=== PATIENT | female | born 1955 | race Caucasian/White ===

== ENCOUNTER 2018-04-19 21:42 | Emergency (ER) | payer OTHER ==
[~2018-04-19] VITALS: Ht 160 cm; Wt 65.5 kg
[2018-04-19 21:44] VITALS: TEMP 36.3; Ht 160 cm; Wt 65.5 kg
[2018-04-19] MEDS ORDERED: KETOROLAC TROMETHAMINE 60 MG/2 ML VIAL IM STA (22:18)
[2018-04-19] MEDS ORDERED: DEXAMETHASONE **PF** INJ 10 MG/ML VIAL IM ONE (22:30)
[2018-04-19] MEDS ORDERED: DEXAMETHASONE SOD INJ 10 MG/ML VIAL ONE (22:30)
[2018-04-19 22:48] VITALS: BP 164/98; PULSE 82; O2SAT 97
--- NOTE | 2018-04-20 02:46 | EMERGENCY ROOM VISIT NOTE ---
History First contact with patient: 21:58 Chief Complaint: BACK PAIN Stated Complaint: LUMBAR FUSION, CHRONIC PAIN IN LEFT LEG AND BACK History of Present Illness The patient is a 63 year old female who presents to the Emergency Room with complaints of severe back pain radiating down her left leg. The patient states the pain is a 10/10 does not improve with [id number] analgesics. She reports a past medical history of L4, L5, and L6 "disc herniation", "multiple pinched nerves", and "degenerative disc disease". She reports having surgery last year at [facility] in [place] to repair chronic back issues. The patient states that her pain persists despite having surgical intervention. She is primarily here for pain control. She has been utilizing the bathroom as normal. No fevers or chills. No chest pain, chest tightness, or shortness of breath. No new numbness or paresthesias. She does have a report of neuropathy in her left leg, which is also chronic. Review of Systems More than 10 systems were reviewed and otherwise negative with the exception of history of present illness. Past Medical/Surgical History COPD, emphysema, chronic back pain, section, lumbar/sacral spine injections, cholecystectomy, L4 S1 spinal decompression, total hysterectomy Family History Diabetes, heart disease, dyslipidemia, end-stage renal disease Social History Smoking Status: Current Every Day Smoker (45 pack year smoking history) Marital Status: Housing Status: lives alone Occupation Status: disabled Physical Exam Vital Signs Date Time Temp Pulse Resp B/P (MAP) Pulse Ox O2 Delivery O2 Flow Rate FiO2 04/19/18 22:48 82 18 164/98 97 04/19/18 21:44 36.3 86 18 145/83 97 Room Air Physical Exam VITALS: Vitals are noted on the nurse's note and reviewed by myself. Vital signs stable. GENERAL: Chronically ill appearing female in no acute distress. HEAD: Normocephalic atraumatic. NECK: Supple without nuchal rigidity. No lymphadenopathy. No thyromegaly. Cervical spine is nontender. HEART: Regular rate and rhythm without murmurs gallops or rubs. LUNGS: Clear to auscultation bilaterally without wheezes, rales or rhonchi. No retractions or accessory muscle use. ABDOMEN: Positive normal bowel sounds x 4. Soft, nontender, without masses or organomegaly. No guarding or rebound tenderness. BACK: Well-healed surgical scar is noted without spinal tenderness or evidence of infection. Positive left-sided straight leg raise. No saddle paresthesias MUSCULOSKELETAL: No muscle atrophy, erythema, or edema noted. Medical Decision & Procedures Medications Administered Medications (Trade) Dose Ordered Sig/Rosa Route Start Time Stop Time Status Last Admin Dose Admin Ketorolac Tromethamine (Toradol Inj) 60 mg NOW STAT IM 04/19/18 22:18 04/19/18 22:23 DC 04/19/18 22:36 60 MG Dexamethasone Sodium Phosphate (Decadron Inj) 10 mg STK-MED ONCE .ROUTE 04/19/18 22:30 04/19/18 22:31 DC 04/19/18 22:37 10 MG ED Course Physical exam and history were performed. Nursing notes, EMR, and Medication List were personally reviewed. Patient appears to have chronic back pain bringing her to the emergency department today. She evidently has a past history of back surgery, and is rating her pain a 10/10. On examination she does not have obvious neurologic deficit. No reproducible tenderness is appreciated. I was able to review the patient's profile in the [place] drug monitoring site. The patient has had multiple controlled substance prescriptions over the past year, including 27 different prescriptions from 12 separate providers in 8 different cities. The patient follows with the [facility] group, and I was able to review her medical records through [employer]. In review of the [facility] medical record I was able to determine the patient has been frequenting the [place] emergency department for her chronic pain. The patient was seen at their facility 2 days ago and 6 days ago with these complaints. The patient has been to their facility a total of 14 times in the past 5 months for similar complaints. She does have a recent MRI that was performed on 02/18/2018 of her low back. The MRI showed uncomplicated spinal fusion hardware with a mild central disc bulge with bilateral neural foraminal narrowing at L4-L5. She had a PCP follow up on 04/15/2018 (4 days ago) who are trying to avoid narcotics and started her on an increased dose of gabapenin. She has appointments upcoming on 05/02/2018 with pain management. There are several additional notes over the past few weeks from case management and other social service providers. The patient appears to have a strong history of drug-seeking behavior and would like to have a pain pump, however she has been unable to complete a full psychiatric evaluation. She does follow with psychiatry, however they will not provide her benzodiazepines until she is off of opioid therapy. [facility] was able to arrange for the patient to have outpatient physical therapy at [facility], and she was placed there earlier this morning. The patient subsequently signed out AGAINST MEDICAL ADVICE from that facility as she felt they were not treating her pain appropriately, and came directly to this facility for pain control. We did receive a phone call from [facility] prior to the patient's arrival, and they voiced their concern for drug-seeking behavior as well. I had a lengthy discussion with patient regarding her situation. I explained that the emergency department was not able to treat chronic pain, but we will provide her a 60 mg IM dose of Toradol as well as a 10 mg IM dose of Decadron. I do not feel comfortable providing the patient narcotics for her pain, as she is frequenting multiple emergency departments and providers for pain control. The patient was very dissatisfied with the nonnarcotic options, and attempted to bargain for narcotics. I again explained that we would treat her pain here with Toradol and Decadron, and additional medications should come from her primary care physician or painter and body mechanic apprentice. Overall the patient appears well for discharge home. The patient was discharged home under the care of a shelter supervisor who is driving for her today. Of note the patient refused a wheelchair at the time of discharge, and also refused a walker. She attempted to walk out of the ER herself, and ultimately required assistance from nursing to leave. There is concern the patient was going to lay herself on the ground and claim that she fell. The patient was escorted with nursing to the [facility], where she was placed into her vehicle without difficulty. She indicated that she was going to go to "[place] to get pain meds". I have a strong suspicion for drug-seeking behavior, and will recommend that she be placed on a no narcotic treatment plan. The chart was completed utilizing [employer] Voice [employer]ognition Software. Grammatical errors, random word insertions, pronoun errors, and incomplete sentences are an occasional consequence of this system due to software limitations, ambient noise, and hardware issues. Any formal questions or concerns about the content, text, or information contained within the body of this dictation should be directly addressed to the provider for clarification. . Medical Decision Differential diagnosis: Etiologies such as musculoskeletal, disc herniation, fracture, aortic disease, metastatic disease, cord compression, discitis, infection, renal colic, gastrointestinal, acute exacerbation of chronic back pain, sciatica, cauda equina, as well as others were entertained. [place] Drug Monitoring Program Search Results: patient reviewed within database (27 prescriptions from 12 providers in 8 different Cities) Impression Primary Impression: Chronic back pain Additional Impression: Drug-seeking behavior Departure Information Dispostion Home / Self-Care Condition GOOD Forms HOME CARE DOCUMENTATION FORM, IMPORTANT VISIT INFORMATION Patient Instructions My [facility] Additional Instructions You were seen and evaluated today on an emergency basis only. This is not a substitute for, or an effort to provide, complete comprehensive medical care. It is not possible to recognize and treat all injuries or illnesses in a single emergency department visit. For this reason it is recommended that you followup with your primary care physician, surgeon, or painter and body mechanic apprentice for ongoing care and evaluation. Emergency department does not provide services for chronic pain control Continue your at-home medications as prescribed You are welcome to return to the emergency department anytime with new, worsening, or concerning symptoms. Problem Qualifiers
== END 2018-04-19 22:49 | disposition home or self-care (01) ==
LOC: C.EDB 21:43
DX: M54.9 Dorsalgia, unspecified (principal); M79.605 Pain in left leg; Z76.5 Malingerer [conscious simulation]; Z98.1 Arthrodesis status; J44.9 Chronic obstructive pulmonary disease, unspecified; F17.210 Nicotine dependence, cigarettes, uncomplicated; Z83.3 Family history of diabetes mellitus; Z84.1 Family history of disorders of kidney and ureter; Z82.49 Family history of ischemic heart disease and other diseases of the circulatory system

== ENCOUNTER 2018-12-12 09:08 | Inpatient (IN) ==
--- NOTE | 2018-10-21 16:18 | PAT Medication Instructions ---
Medication Instructions Date of Service October 21, 2018 Home Medications Aspir-81 81 mg PO QAM albuterol sulfate [ProAir HFA] 2 puff INHALATION QID PRN atorvastatin 20 mg PO HS budesonide [Pulmicort Flexhaler] 1 inh INHALATION BID clonazepam [Klonopin] 1 mg PO UD PRN cyclobenzaprine 10 mg PO TID PRN doxepin 50 mg PO HS gabapentin 300 mg PO TID PRN gabapentin 800 mg PO TID meloxicam 15 mg PO QAM metformin 500 mg PO BID topiramate [Topamax] 25 mg PO QAM topiramate [Topamax] 50 mg PO HS umeclidinium [Incruse Ellipta] 1 inh INHALATION BID ASK your surgeon for instructions meloxicam 15 mg PO QAM DO NOT take the morning of surgery cyclobenzaprine 10 mg PO TID PRN metformin 500 mg PO BID Take morning of surgery With a small sip of water, OTHERWISE NOTHING TO EAT OR DRINK AFTER MIDNIGHT: Aspir-81 81 mg PO QAM albuterol sulfate [ProAir HFA] 2 puff INHALATION QID PRN (use if needed; please bring with you to hospital day of surgery if possible) budesonide [Pulmicort Flexhaler] 1 inh INHALATION BID clonazepam [Klonopin] 1 mg PO UD PRN (if needed) gabapentin 300 mg PO TID PRN (if needed) gabapentin 800 mg PO TID topiramate [Topamax] 25 mg PO QAM umeclidinium [Incruse Ellipta] 1 inh INHALATION BID Take evening before surgery albuterol sulfate [ProAir HFA] 2 puff INHALATION QID PRN (if needed) atorvastatin 20 mg PO HS budesonide [Pulmicort Flexhaler] 1 inh INHALATION BID clonazepam [Klonopin] 1 mg PO UD PRN (if needed) cyclobenzaprine 10 mg PO TID PRN (if needed) doxepin 50 mg PO HS gabapentin 300 mg PO TID PRN (if needed) gabapentin 800 mg PO TID metformin 500 mg PO BID topiramate [Topamax] 50 mg PO HS umeclidinium [Incruse Ellipta] 1 inh INHALATION BID Other Notes If you have any questions please call us at [phone] or [phone] or [phone] or [phone]
--- NOTE | 2018-11-07 16:54 | Anesthesiology Consultation ---
Date of Service November 07, 2018 Assessment & Plan (1) Encounter for pre-operative examination: PATIENT WAS CANCELLED BY SURGEON FOR ELEVATED HgBA1C. Chart Review Chart Review: Patient seen in Pre Admission Testing Consults Requested medical (Dr. Doe) Teaching & Discussion Pre-Anesthesia Teaching/Discussion Notes: Instructed NPO after midnight before surgery, except medications with 15 cc of water. Medication instructions provided according to the PAT guidelines. History Surgery Operation Date: 11/29/18 07:15 Proposed Procedures p Left Total Hip Arthroplasty - Jl Brennan DO Height/Weight Height: 5 ft 3 in Weight: 71 kg Allergies Allergy/AdvReac Type Severity Reaction Status Date / Time No Known Allergies Allergy Verified 10/19/18 09:37 Medications Home Medications Medication Instructions Recorded Confirmed Last Taken Aspir-81 81 mg PO QAM 10/19/18 10/19/18 Unknown albuterol sulfate [ProAir HFA] 2 puff INHALATION QID PRN 10/19/18 10/19/18 Unknown atorvastatin 20 mg PO HS 10/19/18 10/19/18 Unknown budesonide [Pulmicort Flexhaler] 1 inh INHALATION BID 10/19/18 10/19/18 Unknown clonazepam [Klonopin] 1 mg PO UD PRN 10/19/18 10/19/18 Unknown cyclobenzaprine 10 mg PO TID PRN 10/19/18 10/19/18 Unknown doxepin 50 mg PO HS 10/19/18 10/19/18 Unknown gabapentin 300 mg PO TID PRN 10/19/18 10/19/18 Unknown gabapentin 800 mg PO TID 10/19/18 10/19/18 Unknown meloxicam 15 mg PO QAM 10/19/18 10/19/18 Unknown metformin 500 mg PO BID 10/19/18 10/19/18 Unknown topiramate [Topamax] 25 mg PO QAM 10/19/18 10/19/18 Unknown topiramate [Topamax] 50 mg PO HS 10/19/18 10/19/18 Unknown umeclidinium [Incruse Ellipta] 1 inh INHALATION BID 10/19/18 10/19/18 Unknown Past Medical History Medical History Anxiety Chronic obstructive pulmonary disease History of prediabetes "PREDIABETES"- ON METFORMIN Hx of avascular necrosis of capital femoral epiphysis RECENT DIAGNOSIS Hyperlipidemia Migraine Osteoarthritis Past Surgical History Surgical History History of appendectomy History of cataract extraction with lens replacement BILATERAL History of section X2 History of cholecystectomy History of colonoscopy History of hysterectomy TOTAL History of lumbar fusion Past Anesthesia History No Hx of Anesthesia Complications and No Family Hx of Anesthesia Complications History of PONV No Motion Sickness Screening History of Motion Sickness: No Social History Smoking Status: Current every day smoker tobacco type: cigarettes Smoking cigarettes per day: HX OF 1/2 PPD X 20+ YEARS Do You Dip or Chew Tobacco: No Hx Alcohol Use: No Alcohol Intake Frequency Comment: 0 Hx Substance Use: No substance use type: does not use Exercise / Class Metabolic Activity II 4-5 Yardwork/Stairs/Walk up hill (Limited by pain, but still tries to do housework. Able to climb stairs slowly (twice daily). Denies CP. Does get SOB with stairs due to COPD.) Review of Systems Patient denies chest pain, joint pain, reflux, cough, palpitations. +SOB/CARDOZA/Wheezing (Due to COPD) +Joint pain (hip) Physical Exam Vital Signs BP: 124/84 P: 92 R: 16 T: 97.6 SPO2: 96% on RA ENMT Mouth: + poor dentition and + chipped teeth Thyromental Distance: < 3.5 Finger Breadths (2.5) Mallampati Class: III Neck normal visual inspection and trachea midline; neck extension not limited Respiratory normal respiratory effort Auscultation: lungs clear to auscultation bilaterally Cardiovascular Rate/Rhythm: regular rate and regular rhythm Heart Sounds: no murmur Vessels: no carotid bruit Neurologic moves all extremities Psychiatric Orientation: alert and oriented x 3 Testing Electrocardiogram Date: 11/07/18 Findings: + NSR @ (100) Chest X-Ray Date: 11/07/18 Findings: + NAD FINDINGS: Cardiomediastinal silhouette normal. Lungs are mildly hyperinflated. No focal lung opacity. Heterogeneity of lung parenchyma. No pleural effusion or pneumo thorax. Osseous structures normal. Cholecystectomy clips noted. IMPRESSION: 1. Findings may suggest underlying emphysema. No convincing evidence of acute cardiopulmonary disease. Laboratory Results 11/07/18 17:13 11/07/18 17:13 Blood Type AB Positive 11/07/18 17:16 Antibody Screen NEGATIVE 11/07/18 17:16 PT 9.4 Seconds (9.0-12.0) 11/07/18 17:13 INR 0.9 (0.9-1.1) 11/07/18 17:13 APTT 26.2 Seconds (21.0-31.0) 11/07/18 17:13 Hemoglobin A1c 7.6 % (4.5-5.6) H 11/07/18 17:13 Urine Color Yellow 11/07/18 17:13 Urine Appearance Clear (Clear) 11/07/18 17:13 Urine pH 6.0 (4.5-7.5) 11/07/18 17:13 Ur Specific [place] 1.014 (1.000-1.030) 11/07/18 17:13 Urine Protein Negative (Negative) 11/07/18 17:13 Urine Glucose (UA) Negative (Negative) 11/07/18 17:13 Urine Ketones Negative (Negative) 11/07/18 17:13 Urine Nitrite Negative (Negative) 11/07/18 17:13 Ur Leukocyte Esterase Negative (Negative) 11/07/18 17:13 11/07/18 17:13 Urine Culture - Final Urine,Clean Catch Lactobacillus species Surgeon's office notified of elevated HgbA1C.
[2018-11-07 18:23] LABS: Appearance Urine Clear (Clear); Bilirubin Urine Negative (Negative); Blood Urine Negative (Negative); Color Urine Yellow; Glucose Urine UA Negative (Negative); Ketones Urine Negative (Negative); Leukocyte Esterase Urine Negative (Negative); Nitrite Urine Negative (Negative); Protein Urine Negative (Negative); Specific Gravity Urine 1.014 (1.000-1.030); Urobilinogen Urine Negative (Negative)
--- NOTE | 2018-11-07 18:24 | XRay Report ---
XR chest 2V routine CLINICAL HISTORY: 63 years-old Female presenting with PRE OP. TECHNIQUE: PA and lateral views of the chest were obtained. COMPARISON: None. FINDINGS: Cardiomediastinal silhouette normal. Lungs are mildly hyperinflated. No focal lung opacity. Heterogen eity of lung parenchyma. No pleural effusion or pneumothorax. Osseous structures normal. Cholecystect katarina clips noted. IMPRESSION: 1. Findings may suggest underlying emphysema. No convincing evidence of acute cardiopulmonary diseas e. Electronically signed by: Zane Alvarado M.D. 11/07/2018 6:23 PM
[2018-11-07 18:25] LABS: Basophils # (auto) 0.07 K/uL (0-0.2); Basophils % (auto) 0.9 %; Eosinophils # (auto) 0.21 K/uL (0-0.5); Eosinophils % (auto) 2.7 %; Hematocrit (blood only) 39.5 % (37-47); Hemoglobin 13.4 g/dL (12.0-16.0); Immature Granulocytes # (auto) 0.02 K/uL (0.00-0.02); Immature Granulocytes % (auto) 0.3 %; Lymphocytes # (auto) 3.24 K/uL (1.2-3.4); Lymphocytes % (auto) 41.9 %; Mean Corpuscular Hgb Conc 33.9 g/dL (32-36); Mean Corpuscular Volume 96.8 fL (80-100); Mean Platelet Volume 10.5 fL (7.4-10.4); Monocytes # (auto) 0.86 K/uL (0.11-0.59); Monocytes % (auto) 11.1 %; Neutrophils # (auto) 3.33 K/uL (1.4-6.5); Neutrophils % (auto) 43.1 %; Platelet Count 398 K/uL (130-400); RDW Coefficient of Variation 13.5 % (11.5-14.5); RDW Standard Deviation 48.4 fL (36.4-46.3); Red Blood Count 4.08 M/uL (4.2-5.4); White Blood Count 7.73 K/uL (4.8-10.8)
[2018-11-07 18:45] LABS: Albumin Level 3.4 gm/dl (3.4-5.0); BUN Creatinine Ratio 19.3 (10-20); Calcium 9.1 mg/dl (8.5-10.1); Creatinine Clr Calc Pharmacy 71.6 ml/min; Est GFR (African American) 95.9; Est GFR (Non-African American) 82.8; Potassium 3.8 mmol/L (3.5-5.1)
[2018-11-07 18:56] LABS: INR 0.9 (0.9-1.1); Partial Thromboplastin Time 26.2 Seconds (21.0-31.0); Prothrombin Time 9.4 Seconds (9.0-12.0)
[2018-11-08 05:53] LABS: Estimated Average Glucose 171 mg/dl; Hemoglobin A1C 7.6 % (4.5-5.6)
--- NOTE | 2018-12-11 10:24 | History & Physical Report ---
Date of Service December 11, 2018 Assessment & Plan (1) Degenerative joint disease (DJD) of hip: I have indicated the patient for left total hip replacement. The risks, benefits and complications of surgery were explained to the patient which include but not limited to infection, acute blood loss, DVT/PE, injury to nerves, vessels, bone, soft tissue, arthrofibrosis, chronic pain, failure of the prosthesis, hip dislocation, leg length discrepancy, need for additional surgery, cardiac and pulmonary events and . The patient wished to proceed with surgery and informed consent was obtained at this time. We will plan for ASA 325mg BID post-operatively for DVT prophylaxis. Upon discharge the patient will be discharged home with home health services. Appropriate clearances by PCP were obtained. History of Present Illness Primary Care Provider: Dr. Doe The patient is a 63 year old female who presents with complaints of severe left hip pain and DJD. The patient has failed outpatient conservative treatments to this point which included NSAIDs, IA corticosteroid injections and a home walking, exercise program. The patient's pain and limited function have progressed to the point where they severely hinder their activities of daily living and they no longer tolerate exercise programs. They are requesting to proceed with total hip replacement surgery. Allergies Allergy/AdvReac Type Severity Reaction Status Date / Time pollen extracts Allergy Sneezing Verified 12/12/18 09:39 Home Medications Home Medications Medication Instructions Recorded Confirmed Type albuterol sulfate [ProAir HFA] 2 puff INHALATION QID PRN 10/19/18 12/12/18 His tory atorvastatin 20 mg PO HS 10/19/18 12/12/18 History budesonide [Pulmicort Flexhaler] 1 inh INHALATION BID 10/19/18 12/12/18 History clonazepam [Klonopin] 1 mg PO UD PRN 10/19/18 12/12/18 History cyclobenzaprine 10 mg PO TID PRN 10/19/18 12/12/18 History doxepin 50 mg PO HS 10/19/18 12/12/18 History gabapentin 300 mg PO TID PRN 10/19/18 12/12/18 History gabapentin 800 mg PO TID 10/19/18 12/12/18 History meloxicam 15 mg PO QAM 10/19/18 12/12/18 History metformin 500 mg PO BID 10/19/18 12/12/18 History topiramate [Topamax] 25 mg PO QAM 10/19/18 12/12/18 History topiramate [Topamax] 50 mg PO HS 10/19/18 12/12/18 History umeclidinium [Incruse Ellipta] 1 inh INHALATION BID 10/19/18 12/12/18 History aspirin [Aspirin Low Dose] 81 mg PO DAILY 12/12/18 12/12/18 History Past Med/Surg History Medical History Anxiety Chronic obstructive pulmonary disease History of prediabetes "PREDIABETES"- ON METFORMIN Hx of avascular necrosis of capital femoral epiphysis RECENT DIAGNOSIS Hyperlipidemia Migraine Osteoarthritis Surgical History History of appendectomy History of cataract extraction with lens replacement BILATERAL History of section X2 History of cholecystectomy History of colonoscopy History of hysterectomy TOTAL History of lumbar fusion Social History Preferred Language: German Communication Ability: Effective Software Engineering Analyst Required: No Beliefs That Will Affect Care: None Current Living Situation: Family Other Information That Helps Us Care for You: No Feels Safe at Home: Yes Safety Concerns: Feels Safe At This Time Smoking Status: Current every day smoker Hx Alcohol Use: No Hx Substance Use: No Review of Systems All systems reviewed & are unremarkable except as noted in HPI & below Physical Exam Physical Exam: LLE NVSI +EHL/FHL/TA/GS SILT grossly, +2 DP pulse, compartments soft NT, limited painful ROM of the hip. Antalgic gait. Constitutional: WD/WN, vitals as above Eyes: PERRL, conjunctivae normal, anicteric sclerae ENMT: external ear and nose normal, oropharynx normal Neck: trachea midline, no thyromegaly Respiratory: normal respiratory effort, lungs clear to auscultation Cardiovascular: RRR, no murmur, no edema Gastrointestinal (Abdomen): normal bowel sounds, soft, nontender, no hepatosplenomegaly Musculoskeletal: no cyanosis or clubbing, extremities motor strength 5/5 Skin: no rashes, warm and dry Neurologic: patellar DTR's 2+ bilat, sensation intact Psychiatric: A+Ox3, euthymic affect Lymphatic: no cervical or axillary lymphadenopathy Results & Data Diagnostic Findings Multiple views of the hip demonstrates severe DJD with complete loss of the joint space. +osteophytes, +sclerosis, +subchondral cysts. Femoral head sunchondral collapse/AVN.
[~2018-12-12 09:08] MED LIST: ACETAMINOPHEN 500 MG TAB PO SCH; BUPIVACAINE 0.5 % 5 MG/1 ML PF 10ML VIAL ONE; CEFAZOLIN 1000MG 1,000 MG/7.5 ML SYR IV SCH; CeleBREX 200 MG CAP PO SCH; FAMOTIDINE 20 MG TAB PO SCH; GABAPENTIN 300 MG x 2 PO SCH; LR 500ML BOLUS, THEN 15ML/HR IV SCH; ROPIVACAINE 0.5% HCL/PF 150 MG, BUPIVACAINE 0.5% MPF 30 ML, EPINEPHrine 30MG/30ML (OR U... INFIL SCH; TRANEXAMIC ACID 1,000 MG **IV Intra-op IV SCH; TRANEXAMIC ACID 1,000 MG **IV Pre-op IV SCH; dexAMETHasone 4 MG TAB PO SCH
[2018-12-12] MEDS ORDERED: MIDAZOLAM HCL 1 MG/ML 2ML VIAL ONE ×2 (09:27→14:11)
[2018-12-12] MEDS ORDERED: LIDOCAINE HCL 2% 2 ML VIAL/AMP(20MG/ML) INFIL ONE (09:27)
[2018-12-12] MEDS ORDERED: PROPOFOL IV EMULSION 10 MG/ML 20 ML VIAL IV ONE (09:27)
[2018-12-12] MEDS ORDERED: fentaNYL citrate 100 MCG/2 ML VIAL ONE (09:27)
[2018-12-12] MEDS ORDERED: ORTHO JOINT ANESTHETIC ONE (10:19)
[2018-12-12] MEDS ORDERED: BACITRACIN INJ 50,000 UNIT VIAL ONE (10:19)
[2018-12-12] MEDS ORDERED: POVIDONE-IODINE OP SOLN 30 ML BTL ONE (10:19)
[2018-12-12] MEDS ORDERED: ePHEDrine sulfate 50 MG/ML AMP IV PRN (10:42)
[2018-12-12] MEDS ORDERED: ATROPINE SULFATE 0.1 MG/ML 10ML SYR IV PRN (10:42)
[2018-12-12] MEDS ORDERED: HYDROmorphone INJ 2 MG/ML SYR/VIAL ONE (11:30)
[2018-12-12] MEDS ORDERED: ROCURONIUM BROMIDE 10 MG/ML 5 ML VIAL ONE (11:30)
[2018-12-12] MEDS ORDERED: KETAMINE HCL INJ 50 MG/ML 10 ML VIAL ONE (12:00)
[2018-12-12] MEDS: HYDROmorphone INJ 1 MG/ML SYRINGE IV PRN ×8 (13:02→14:56)
--- NOTE | 2018-12-12 13:12 | Post Operative Brief Note ---
Immediate Post Op Note v1 Date of Surgery December 12, 2018 Pre & Post Diagnosis Operation Date: 12/12/18 11:30 Pre-Op Diagnosis: Left hip degenerative joint disease Post-Op Diagnosis: Left hip degenerative joint disease Procedure Operation Date: 12/12/18 11:30 Actual Procedures p Left Total Hip Arthroplasty(Left) - Jl Brennan DO Surgeon lJ Brennan DO Loose Hand Packer Deshaun Velazquez Estimated Blood Loss 55 Findings Consistent with Post-Op Diagnosis Fluids 1100 CC LR Specimens femoral head Anesthesia Type General Complications none Disposition Disposition: Recovery Room Overlapping Procedure I was present for: the critical portions of procedure. I was immediately available: during the entire case. Back up surgeon: was not required during procedure.
--- NOTE | 2018-12-12 13:20 | Operative Report ---
Post Operative Report Pre & Post Diagnosis Operation Date: 12/12/18 11:30 Pre-Op Diagnosis: Left hip degenerative joint disease Post-Op Diagnosis: Left hip degenerative joint disease Procedure Operation Date: 12/12/18 11:30 Actual Procedures p Left Total Hip Arthroplasty(Left) - Jl Brennan DO Surgeon Jl Brennan DO Tire Inspector Deshaun Velazquez Estimated Blood Loss 55 Findings Consistent with Post-Op Diagnosis Specimens Femoral head Anesthesia Type General Complications none Disposition Disposition: Recovery Room Indications The patient is a 63-year-old female who presents with severe progressive left hip DJD/AVN who has failed outpatient conservative treatments. I indicated the patient for a total hip replacement and the risks and benefits were explained in detail which included but not limited to infection, bleeding, blood clot, damage to surrounding bone, nerves, vessels, soft tissue, hip dislocation, failure of the prosthesis, leg length discrepancy, need for additional surgery and . The patient agreed to proceed with replacement of the hip and informed consent was obtained. Appropriate clearances were obtained. Description of Procedure Following induction of adequate general anesthesia, the patient was transferred to the OR table and placed in lateral decubitus position with right hip down. The left hip was prepped and draped in the typical sterile fashion. A timeout was performed, patient identified and site ashu confirmed. Appropriate antibiotics were given. A standard posterolateral/Kala-Langenbeck incision was made. Subcutaneous tissue was sharply dissected. Electrocautery was utilized for hemostasis. The fascia was incised throughout the length of the wound and retracted with the Charnley retractor. The bursa was taken down and the short external rotators were identified. The piriformis was tagged with #1 Vicryl. The short external rotators and capsule were divided from the posterior aspect of the femur using electrocautery. The posterior capsule was tagged with #1 Vicryl. Both external rotators and posterior capsule were swept posterior and protected, along with protecting the sciatic nerve. The hip was dislocated by flexion and internally rotation in a controlled manner and exposure of the femoral neck was gained with an old-style Hohmann and a blunt cobra retractor. A femoral cutting guide was utilized for making the appropriate level femoral neck cut with reciprocating saw. The femoral head was removed, measured and reserved on the back table. Next, attention was turned to the acetabulum. A posterior and anterior offset retractor was placed to gain adequate exposure. Acetabular labrum as well as posterior capsule elements were removed using electrocautery and forceps. Fovea centralis was cleared of all soft tissue. Sequential reaming was performed starting at 42 mm and carried up to a 47 mm and decision was made to proceed with impaction of a 48 mm trabecular metal cup. This was impacted and held using a single 35 mm bone screw. The trial acetabular liner was placed at this time. Next, attention was turned to the proximal femur where a Bovie and pickup was used to further clear short exte rnal rotators from their insertion on the femur. Box osteotome and canal finder was used to gain access to the femoral canal and the lateral reamer on power was used to further open the proximal lateral canal. Sequentially rasping was carried up to a 10 which gave good fit and fill of the proximal femur. A trial reduction was carried out with a standard offset femoral neck component a 32+0 mm femoral head. The trial reduction was stable in all degrees of rotation with no [id number] impingement. The hip was dislocated, trial components were removed and access to the acetabulum was re-established. The trial liner was removed and the cup was irrigated to ensure all debris was removed. The final acetabular liner was inserted and properly seated in the cup. Access to the femur was once more gained and the size 10 femoral stem with standard offset was impacted into position. The hip was once more assessed with the 32+0 mm femoral head. Stability was accessed and found to be excellent with equal leg lengths. The hip was dislocated for the last time and the final 32+0 ceramic femoral head was impacted in place and the hip was reduced. Range of motion was checked once again and found to be stable. The wound was copiously irrigated with sterile saline solution. The ban-incisional soft tissue was injected utilizing [place] ortho mix which includes a combination of Ropivicaine 0.5% 150mg, Bupivicaine 0.5%/Epinephrine 1:200,000 30ml, Toradol 30mg, Dexamethasone 4mg, Ketamine 10mg, Clonidine 100mcg and NSS 30ml Orthomix solution. The piriformis, external rotators and capsule were repaired to the greater trochanter through bone tunnels using #5 FiberWire. The fascia was closed using #1 Vicryl, subcutaneous tissue was closed using 2-0 Vicryl, and skin was closed with fatoumata. Sterile dressings were applied which included Tamara incisional VAC. The patient tolerated the procedure well and was transported to PACU in stable condition. Due to the complex nature of the procedure, the entire surgery was performed with the operational assistance of Deshaun Velazquez PA-C. The assistant customer service manager, under direct supervision, was involved in the actual performance of all aspects of the surgical procedure including patient positioning, hemostasis, tissue retraction, instrument management and wound closure. I attest to the content of the Intraoperative Record and any orders documented therein. Any exceptions are noted below.
--- NOTE | 2018-12-12 14:00 | Anesthesiology Progress Note ---
Date of Service December 12, 2018 Anesthesia Post Procedure Vital Signs Vital Signs: Temp Pulse Resp BP Pulse Ox 12/12/18 10:02 36.5 C 98 H 20 143/87 H 97 Pain Intensity Left Hip: Pain Intensity: 8 Notes Mental Status: alert / awake / arousable Patient Amnestic to Procedure: Yes Nausea / Vomiting: adequately controlled Pain: adequately controlled Airway Patency, RR, SpO2: stable & adequate BP & HR: stable & adequate Hydration State: stable & adequate Anesthetic Complications: no major complications apparent and Pt Satisfied with anesthetic care
[2018-12-12] MEDS ORDERED: MIDAZOLAM HCL 5 MG/ML 1 ML VIAL IV STA (14:05)
--- NOTE | 2018-12-12 14:10 | XRay Report ---
XR hip 1V LT w pelvis CLINICAL HISTORY: 63 years-old Female presenting with IN PACU - A/P PELVIS and LATERAL HIP . TECHNIQUE: Single frontal view the pelvis and crosstable lateral view of the left hip were obtained. COMPARISON: None. FINDINGS: Partially visualized lumbar fusion hardware. Post-surgical changes of total left hip arthroplasty. No periprosthetic fracture or malalignment. Bony pelvis otherwise intact. Expected soft tissue and intr a-articular emphysema. Skin fatoumata noted. Osteopenia. IMPRESSION: Expected post-surgical changes of total left hip arthroplasty. Electronically signed by: Zane Alvarado M.D. 12/12/2018 2:09 PM
[2018-12-12] MEDS: HYDROmorphone INJ 2 MG/ML SYR/VIAL IV PRN ×3 (14:45→14:56)
[2018-12-12] MEDS ORDERED: BISACODYL 10 MG SUPP PR PRN (15:32)
[2018-12-12] MEDS ORDERED: METOCLOPRAMIDE HCL INJ 5 MG/ML 2 ML VIAL IV PRN (15:32)
[2018-12-12] MEDS ORDERED: GABAPENTIN 300 MG CAP PO PRN (15:32)
[2018-12-12] MEDS ORDERED: NALOXONE HCL 0.4 MG/1 ML VIAL/CARP IV PRN (15:32)
[2018-12-12] MEDS ORDERED: ONDANSETRON INJ 2 MG/ML 2 ML VIAL IV PRN (15:32)
[2018-12-12] MEDS ORDERED: MAGNESIUM HYDROXIDE SUSP 30 ML UDC PO PRN (15:32)
[2018-12-12] MEDS ORDERED: ALBUTEROL HFA 8 GM INHALER INH PRN (15:32)
--- NOTE | 2018-12-12 15:52 | Pharmacy Report ---
Glycemic Control Consultation - Date of Service December 12, 2018 - Scope Scope: Glycemic Pharmacist consulted by Dr Brennan on 12/12/18 for glycemic control and to write orders per [facility] inpatient glycemic control protocol - Objective Weight: 67.449 kg Accuchecks BSG (last 24hrs): 12/12/18 12/12/18 09:38 13:47 POC Glucose 123 H 156 H HbA1c: Hemoglobin A1c 7.6 % (4.5-5.6) H 11/07/18 17:13 - Recent Pertinent Medications Outpatient Anti-diabetic Regimen: * metformin 500 mg PO BID * A1c = 7.6 % 11/07/18 Risk Factors for Insulin Resistance: * Steroids: dexamethasone 8 mg PO preop and dexamethasone 4 mg topically * Recent Surgery: POD 0 for hip surgery * Diet: T2DM - Assessment & Plan Assessment & Plan: ASSESSMENT: * Ms Lowry is a 63 y/o F with a PMH of anxiety, migraines, and slightly uncontrolled T2DM who presents for L hip surgery. Patient is now post-op having received steroids. Fasting today was 123 mg/dL and after was 156 mg/dL. * For Lantus, will give between full weight-based stress of 2 and 3 at 20 units. Do not want to jayne hyperglycemia from steroids with Lantus therefore will add overnight checks. Weight-based stress of 3 Novolog also ordered. Consider restarting metformin POD2. * ADA & AACE recommend a goal blood sugar range 140-180 mg/dl for the majority of critically ill & non-critically ill patients. However, more stringent targets may be selected in individual cases. Will utilize more stringent goal of 110-140mg/dl based on patient age & comorbidities. Additionally, tighter glycemic control is warranted to facilitate wound/infection healing. * Pt is maintained on oral antidiabetic agents as an outpatient * Oral agents are not recommended for inpatient use d/t drug interactions, changing PO intake, and difficulty titrating for acute hyper/hypoglycemia. ADA recommends re-initiating outpatient oral agents 1-2 days prior to discharge if/when appropriate if they were held on admission. * Will hold oral agents for admission and utilize SQ basal bolus insulin regimen which is the recommended regimen for inpatient glycemic control. * Will initiate weight based insulin dosing for insulin zak patient and titrate based on BSG trends. PLAN FOR INPATIENT GLYCEMIC CONTROL: * Holding outpatient oral diabetes medications * Basal insulin * Lantus 20 units SQ x 1 * Bolus insulin * NovoLog per scale ACHS or Q6hrs while NPO * Goal Range: Low 110 mg/dL - High 140 mg/dL * Correction Factor: 25 mg/dL/unit * Nutritional / Prandial insulin per carb ratio of 1 unit per 8 grams CHO consumed Recommendations for Discharge * Patient is not 100% controlled currently. Recommend increasing metformin to 1 gm PO BID and then rechecking A1C in 3 months. Thank you.
[2018-12-12] MEDS ORDERED: PHARMACY GLYCEMIC MGMT CONSULT PRN (15:56)
[2018-12-12] MEDS ORDERED: GLUCOSE 40% GEL 15 GM TUBE PO PRN (16:00)
[2018-12-12] MEDS ORDERED: DEXTROSE 50% 50 ML SYRINGE IV PRN (16:00)
[2018-12-12] MEDS ORDERED: CARBOHYDRATES FOR HYPOGLYCEMIA PO PRN (16:00)
[2018-12-12] MEDS ORDERED: GLUCAGON FOR INJ 1 MG VIAL IM PRN (16:00)
[2018-12-12] MEDS ORDERED: GLUCOSE 10 TABS/TUBE PO PRN (16:00)
[2018-12-12] MEDS ORDERED: SODIUM CHLORIDE 0.9% 1000ML 1,000 ML IV SCH (16:02)
[2018-12-12] MEDS: KETOROLAC TROMETHAMINE 15 MG/ML VIAL IV SCH ×2 (16:25→21:23)
[2018-12-12] MEDS ORDERED: INSULIN GLARGINE SOLOSTAR 100 UNITS/ML 3 ML PEN SC ONE (16:30)
--- NOTE | 2018-12-12 17:00 | Orthopedic Progress Note ---
Date of Service December 12, 2018 Assessment & Plan (1) Degenerative joint disease (DJD) of hip: s/p Left NANDINI -ancef x 24 -DVT ppx - SCDs, TEDS, ASA BID -WBAT LLE -PT/OT -PO XR - well aligned well fixed prothesis without fracture/dislocation -am labs -DC planning - Home with HH Subjective Post Operative Progress Note Patient seen in PACU, c/o pain, no acute issues. Physical Exam Vital Signs (Past 24 Hours): Last Vital Signs Temp 36.6 C 12/12/18 16:36 Pulse 99 H 12/12/18 16:36 Resp 18 12/12/18 16:36 BP 117/73 12/12/18 16:36 Pulse Ox 98 12/12/18 16:36 Physical Exam: LLE NVSI +EHL/FHL/TA/GS SILT grossly, +2 DP pulse, compartments soft NT, dressing cdi. Constitutional: WD/WN, vitals as above
[2018-12-12] MEDS: INSULIN ASPART 100 UNITS/ML 3 ML PEN SC SCH ×2 (17:26→21:26)
[2018-12-12] MEDS: OXYCODONE HCL IR 5 MG TAB (IMMEDIATE RELEASE) PO PRN (18:26)
[2018-12-12] MEDS ORDERED: INSULIN ASPART 100 UNITS/ML 3 ML PEN SC STA (19:40)
[2018-12-12] MEDS: CEFAZOLIN 2000MG 2,000 MG/15 ML SYR IV SCH (19:58)
[2018-12-12] MEDS ORDERED: METFORMIN HCL 500 MG TAB PO SCH (21:00)
[2018-12-12] MEDS: clonazePAM 1 MG TAB PO PRN (21:18)
[2018-12-12] MEDS: DOCUSATE SODIUM 100 MG CAP PO SCH (21:20)
[2018-12-12] MEDS: BUDESONIDE 90 MCG INH INH SCH (21:21)
[2018-12-12] MEDS: GABAPENTIN 800 MG TAB PO SCH (21:21)
[2018-12-12] MEDS: SENNA 8.6 MG TAB PO SCH (21:21)
[2018-12-12] MEDS: TOPIRAMATE 50 MG TAB PO SCH (21:22)
[2018-12-12] MEDS: DOXEPIN HCL 50 MG CAPSULE PO SCH (21:22)
[2018-12-12] MEDS: ACETAMINOPHEN 500 MG TAB PO SCH (21:23)
[2018-12-12] MEDS: ATORVASTATIN 20 MG TAB PO SCH (21:24)
[2018-12-13] MEDS: INSULIN ASPART 100 UNITS/ML 3 ML PEN SC SCH ×6 (00:07→21:33)
[2018-12-13] MEDS: OXYCODONE HCL IR 5 MG TAB (IMMEDIATE RELEASE) PO PRN ×5 (00:18→19:43)
[2018-12-13] MEDS: KETOROLAC TROMETHAMINE 15 MG/ML VIAL IV SCH ×2 (03:56→10:16)
[2018-12-13] MEDS: CEFAZOLIN 2000MG 2,000 MG/15 ML SYR IV SCH (03:56)
[2018-12-13] MEDS: clonazePAM 1 MG TAB PO PRN (05:15)
[2018-12-13 06:02] LABS: Hematocrit (blood only) 31.6 % (37-47); Hemoglobin 10.3 g/dL (12.0-16.0); Mean Corpuscular Hgb Conc 32.6 g/dL (32-36); Mean Corpuscular Volume 96.3 fL (80-100); Mean Platelet Volume 10.1 fL (7.4-10.4); Platelet Count 299 K/uL (130-400); RDW Coefficient of Variation 13.4 % (11.5-14.5); RDW Standard Deviation 47.3 fL (36.4-46.3); Red Blood Count 3.28 M/uL (4.2-5.4); White Blood Count 11.16 K/uL (4.8-10.8)
[2018-12-13] MEDS: ACETAMINOPHEN 500 MG TAB PO SCH ×3 (06:05→21:28)
[2018-12-13 06:21] LABS: BUN Creatinine Ratio 19.6 (10-20); Calcium 8.8 mg/dl (8.5-10.1); Creatinine Clr Calc Pharmacy 50.3 ml/min; Est GFR (African American) 64.4; Est GFR (Non-African American) 55.6
[2018-12-13 06:24] LABS: Basophils # (auto) 0.01 K/uL (0-0.2); Basophils % (auto) 0.1 %; Eosinophils # (auto) 0.01 K/uL (0-0.5); Eosinophils % (auto) 0.1 %; Immature Granulocytes # (auto) 0.04 K/uL (0.00-0.02); Immature Granulocytes % (auto) 0.4 %; Lymphocytes # (auto) 1.69 K/uL (1.2-3.4); Lymphocytes % (auto) 15.1 %; Monocytes # (auto) 1.36 K/uL (0.11-0.59); Monocytes % (auto) 12.2 %; Neutrophils # (auto) 8.05 K/uL (1.4-6.5); Neutrophils % (auto) 72.1 %
[2018-12-13] MEDS: HYDROmorphone INJ 0.5 MG/0.5 ML SYR IV PRN ×4 (07:26→21:36)
--- NOTE | 2018-12-13 08:09 | Anesthesiology Progress Note ---
Date of Service December 13, 2018 Anesthesia Post Procedure Vital Signs Vital Signs: Temp Pulse Pulse Pulse Resp BP BP 12/13/18 07:10 36.7 C 74 15 93/61 L 12/13/18 03:55 36.6 C 77 16 103/62 12/12/18 23:07 36.6 C 82 16 97/62 L 12/12/18 18:28 36.5 C 68 12 101/63 12/12/18 17:45 70 109/69 12/12/18 17:32 36.8 C 85 18 97/65 L 12/12/18 16:36 36.6 C 99 H 18 117/73 12/12/18 16:00 36.6 C 77 12 100/67 12/12/18 15:30 36.5 C 91 H 16 103/65 12/12/18 15:21 94 H 16 107/81 12/12/18 15:20 99 H 13 12/12/18 15:17 100 H 18 93/67 L 12/12/18 15:16 84 12 64/39 L 12/12/18 15:15 99 H 16 12/12/18 15:10 99 H 15 99/70 L 12/12/18 15:08 85 12 104/71 12/12/18 15:05 79 17 12/12/18 15:01 101 H 25 H 94/72 L 12/12/18 15:00 94 H 9 L 12/12/18 14:55 87 16 120/72 12/12/18 14:51 90 13 103/73 12/12/18 14:50 98 H 13 12/12/18 14:45 94 H 17 117/79 12/12/18 14:41 89 12 110/65 12/12/18 14:40 91 H 15 12/12/18 14:38 36.6 C 91 H 20 110/65 12/12/18 14:35 76 8 L 107/75 12/12/18 14:30 89 19 99/75 L 12/12/18 14:26 95 H 12 114/78 12/12/18 14:25 87 10 L 12/12/18 14:22 78 14 12/12/18 14:20 88 20 12/12/18 14:15 89 14 118/89 12/12/18 14:10 88 19 107/80 12/12/18 14:05 81 19 102/77 12/12/18 14:01 84 12 127/85 12/12/18 14:00 87 14 12/12/18 13:55 86 15 130/73 12/12/18 13:50 85 18 112/77 12/12/18 13:46 95 H 19 112/72 12/12/18 13:45 88 15 12/12/18 13:42 36.5 C 91 H 92 H 17 123/73 123/73 12/12/18 13:41 13 12/12/18 10:02 36.5 C 98 H 20 143/87 H Pulse Ox 12/13/18 07:10 96 12/13/18 03:55 94 12/12/18 23:07 95 12/12/18 18:28 100 12/12/18 17:45 100 12/12/18 17:32 100 12/12/18 16:36 98 12/12/18 16:00 97 12/12/18 15:30 95 12/12/18 15:21 96 12/12/18 15:20 96 12/12/18 15:17 94 12/12/18 15:16 96 12/12/18 15:15 94 12/12/18 15:10 95 12/12/18 15:08 96 12/12/18 15:05 95 12/12/18 15:01 92 12/12/18 15:00 94 12/12/18 14:55 91 12/12/18 14:51 93 12/12/18 14:50 94 12/12/18 14:45 97 12/12/18 14:41 94 12/12/18 14:40 97 12/12/18 14:38 95 12/12/18 14:35 96 12/12/18 14:30 94 12/12/18 14:26 97 12/12/18 14:25 96 12/12/18 14:22 97 12/12/18 14:20 97 12/12/18 14:15 95 12/12/18 14:10 98 12/12/18 14:05 100 12/12/18 14:01 100 12/12/18 14:00 100 12/12/18 13:55 100 12/12/18 13:50 100 12/12/18 13:46 100 12/12/18 13:45 100 12/12/18 13:42 100 12/12/18 13:41 98 12/12/18 10:02 97 Pain Intensity Left Hip: Pain Intensity: 7 Notes Mental Status: alert / awake / arousable and participated in evaluation Patient Amnestic to Procedure: Yes Nausea / Vomiting: adequately controlled Pain: adequately controlled Airway Patency, RR, SpO2: stable & adequate BP & HR: stable & adequate Hydration State: stable & adequate Anesthetic Complications: no major complications apparent and Pt Satisfied with anesthetic care
[2018-12-13] MEDS: ASPIRIN 325 MG ECTAB PO SCH ×2 (08:50→20:19)
[2018-12-13] MEDS: MULTIVITAMIN TAB PO SCH (08:51)
[2018-12-13] MEDS: GABAPENTIN 800 MG TAB PO SCH ×3 (08:51→20:20)
[2018-12-13] MEDS: DOCUSATE SODIUM 100 MG CAP PO SCH ×2 (08:51→20:19)
[2018-12-13] MEDS: TOPIRAMATE 25 MG TAB PO SCH (08:51)
[2018-12-13] MEDS ORDERED: INSULIN GLARGINE SOLOSTAR 100 UNITS/ML 3 ML PEN SC SCH (09:00)
[2018-12-13] MEDS: BUDESONIDE 90 MCG INH INH SCH ×2 (09:01→20:21)
--- NOTE | 2018-12-13 09:24 | Orthopedic Progress Note ---
Date of Service December 13, 2018 Assessment & Plan (1) Degenerative joint disease (DJD) of hip: s/p Left NANDINI POD#1 -ancef x 24 -DVT ppx - SCDs, TEDS, ASA BID -WBAT LLE -PT/OT -Posterior hip precautions -PO XR - well aligned well fixed prothesis without fracture/dislocation -am labs - hgb 10.3, post operative anemia secondary to acute operative blood loss and dilutional effect. -DC planning - Home with HH Subjective Post Operative Progress Note Patient seen sitting up in bed, comfortable, denies complaints, pain controlled with current medication, much improved this morning, no acute issues overnight. Physical Exam Vital Signs (Past 24 Hours): Last Vital Signs Temp 36.7 C 12/13/18 07:10 Pulse 74 12/13/18 07:10 Resp 15 12/13/18 07:10 BP 93/61 L 12/13/18 07:10 Pulse Ox 96 12/13/18 07:10 Physical Exam: LLE NVSI +EHL/FHL/TA/GS SILT grossly, +2 DP pulse, compartments soft NT, dressing cdi. Constitutional: WD/WN, vitals as above
--- NOTE | 2018-12-13 15:52 | Pharmacy Report ---
Pharmacy Glycemic Short Note 2 - Date of Service December 13, 2018 - Glycemic Short BSG Results (Last 24 hours): 12/12/18 12/12/18 12/13/18 16:29 21:09 00:06 Glucose POC Glucose 168 H 149 H 147 H 12/13/18 12/13/18 12/13/18 03:53 05:38 08:03 Glucose 149 H POC Glucose 154 H 120 H 12/13/18 12:10 Glucose POC Glucose 125 H OUTPATIENT ANTIDIABETIC REGIMEN: * Metformin 500 mg BID ASSESSMENT: * POD #1; BSGs well controlled; Fasting 120 mg/dL; Post-prandial range 125-168 mg/dL * Will continue current novolog parameters-may need to loosen if BSGs trend downward * Split lantus dose 11 units this morning, scale for PM up to 11 units (22 units total- stress of 2 weight based dosing) PLAN FOR INPATIENT GLYCEMIC CONTROL: * Hold outpatient oral diabetes medications * Basal insulin * Lantus 11 units qam * BSG <140: Hold * BSG 140-180: 5 Units * BSG >180: 11 Units * Bolus insulin * NovoLog per scale ACHS or Q6hrs while NPO * Goal Range: Low 110 mg/dL - High 140 mg/dL * Correction Factor: 25 mg/dL/unit * Nutritional / Prandial insulin per carb ratio of 1 unit per 8 grams CHO consumed PLAN FOR DISCHARGE: * Increase metformin outpatient dose to 1000 mg BID, recheck A1c in 3 months.
[2018-12-13] MEDS: DULOXETINE HCL 30 MG CAP PO SCH ×2 (19:39→22:52)
[2018-12-13] MEDS: ATORVASTATIN 20 MG TAB PO SCH (20:20)
[2018-12-13] MEDS: SENNA 8.6 MG TAB PO SCH (20:21)
[2018-12-13] MEDS: DOXEPIN HCL 50 MG CAPSULE PO SCH (20:22)
[2018-12-13] MEDS: TOPIRAMATE 50 MG TAB PO SCH (20:22)
[2018-12-13] MEDS: CeleBREX 200 MG CAP PO SCH (21:28)
[2018-12-13] MEDS: INSULIN GLARGINE SOLOSTAR 100 UNITS/ML 3 ML PEN SC SCH (21:31)
[2018-12-14] MEDS: OXYCODONE HCL IR 5 MG TAB (IMMEDIATE RELEASE) PO PRN ×3 (00:40→08:54)
[2018-12-14] MEDS: HYDROmorphone INJ 0.5 MG/0.5 ML SYR IV PRN ×3 (01:27→10:03)
[2018-12-14] MEDS: ACETAMINOPHEN 500 MG TAB PO SCH (05:37)
[2018-12-14 06:53] LABS: Basophils # (auto) 0.03 K/uL (0-0.2); Basophils % (auto) 0.3 %; Eosinophils # (auto) 0.09 K/uL (0-0.5); Eosinophils % (auto) 0.8 %; Hematocrit (blood only) 32.2 % (37-47); Hemoglobin 10.4 g/dL (12.0-16.0); Immature Granulocytes # (auto) 0.03 K/uL (0.00-0.02); Immature Granulocytes % (auto) 0.3 %; Lymphocytes # (auto) 3.25 K/uL (1.2-3.4); Lymphocytes % (auto) 30.1 %; Mean Corpuscular Hgb Conc 32.3 g/dL (32-36); Mean Corpuscular Volume 96.7 fL (80-100); Mean Platelet Volume 10.2 fL (7.4-10.4); Monocytes # (auto) 1.49 K/uL (0.11-0.59); Monocytes % (auto) 13.8 %; Neutrophils # (auto) 5.91 K/uL (1.4-6.5); Neutrophils % (auto) 54.7 %; Platelet Count 316 K/uL (130-400); RDW Coefficient of Variation 13.9 % (11.5-14.5); RDW Standard Deviation 49.2 fL (36.4-46.3); Red Blood Count 3.33 M/uL (4.2-5.4)
[2018-12-14 07:13] LABS: BUN Creatinine Ratio 28.1 (10-20); Calcium 8.2 mg/dl (8.5-10.1); Creatinine Clr Calc Pharmacy 72.7 ml/min; Est GFR (African American) 100.6; Est GFR (Non-African American) 86.8; Potassium 4.2 mmol/L (3.5-5.1)
[2018-12-14] MEDS: MULTIVITAMIN TAB PO SCH (07:33)
[2018-12-14] MEDS: GABAPENTIN 800 MG TAB PO SCH (07:33)
[2018-12-14] MEDS: DOCUSATE SODIUM 100 MG CAP PO SCH (07:34)
[2018-12-14] MEDS: DULOXETINE HCL 30 MG CAP PO SCH (07:34)
[2018-12-14] MEDS: CeleBREX 200 MG CAP PO SCH (07:34)
[2018-12-14] MEDS: ASPIRIN 325 MG ECTAB PO SCH (07:35)
[2018-12-14] MEDS: TOPIRAMATE 25 MG TAB PO SCH (07:36)
[2018-12-14] MEDS: BUDESONIDE 90 MCG INH INH SCH (07:36)
[2018-12-14] MEDS: INSULIN GLARGINE SOLOSTAR 100 UNITS/ML 3 ML PEN SC SCH (07:39)
[2018-12-14] MEDS: INSULIN ASPART 100 UNITS/ML 3 ML PEN SC SCH (07:41)
[2018-12-14] MEDS: clonazePAM 1 MG TAB PO PRN (07:45)
[2018-12-14] MEDS ORDERED: UMECLIDINIUM BROMIDE INH SCH (09:00)
--- NOTE | 2018-12-14 09:13 | Orthopedic Progress Note ---
Date of Service December 14, 2018 Assessment & Plan (1) Degenerative joint disease (DJD) of hip: s/p Left NANDINI POD#2 -ancef x 24 -DVT ppx - SCDs, TEDS, ASA BID -WBAT LLE -PT/OT -Posterior hip precautions -PO XR - well aligned well fixed prothesis without fracture/dislocation -am labs - hgb 10.4, stable -DC planning - Home with HH today POD#1 -ancef x 24 -DVT ppx - SCDs, TEDS, ASA BID -WBAT LLE -PT/OT -Posterior hip precautions -PO XR - well aligned well fixed prothesis without fracture/dislocation -am labs - hgb 10.3, post operative anemia secondary to acute operative blood loss and dilutional effect. -DC planning - Home with HH Subjective Post Operative Progress Note Patient seen sitting up eating breakfast, comfortable, denies complaints, pain controlled with current medication, improved significantly, no acute issues over night. Physical Exam Vital Signs (Past 24 Hours): Last Vital Signs Temp 36.7 C 12/14/18 06:39 Pulse 92 H 12/14/18 06:39 Resp 18 12/14/18 06:39 BP 111/72 12/14/18 06:39 Pulse Ox 95 12/14/18 06:39 Physical Exam: LLE NVSI +EHL/FHL/TA/GS SILT grossly, +2 DP pulse, compartments soft NT, dressing cdi. Constitutional: WD/WN, vitals as above
--- NOTE | 2018-12-14 22:33 | Discharge Summary ---
Date of Service December 14, 2018 Admission HPI Per Admitting Provider The patient is a 63 year old female who presents with complaints of severe left hip pain and DJD. The patient has failed outpatient conservative treatments to this point which included NSAIDs, IA corticosteroid injections and a home walking, exercise program. The patient's pain and limited function have progressed to the point where they severely hinder their activities of daily living and they no longer tolerate exercise programs. They are requesting to proceed with total hip replacement surgery. Principal Diagnosis Left total hip replacement Discharge Exam LLE NVSI +EHL/FHL/TA/GS SILT grossly, +2 DP pulse, compartments soft NT, dressing cdi. Constitutional WD/WN, vitals as above Eyes PERRL, conjunctivae normal, anicteric sclerae ENMT external ear and nose normal, oropharynx normal Neck trachea midline, no thyromegaly Respiratory normal respiratory effort, lungs clear to auscultation Cardiovascular RRR, no murmur, no edema Gastrointestinal (Abdomen) normal bowel sounds, soft, nontender, no hepatosplenomegaly Musculoskeletal no cyanosis or clubbing, extremities motor strength 5/5 Skin no rashes, warm and dry Neurologic patellar DTR's 2+ bilat, sensation intact Psychiatric A+Ox3, euthymic affect Lymphatic no cervical or axillary lymphadenopathy Discharge Data Allergies Allergy/AdvReac Type Severity Reaction Status Date / Time pollen extracts Allergy Sneezing Verified 12/12/18 09:39 Consultations 12/13/18 08:00 Consult Case Management - Discharge Planning Routine Procedures Performed Operation Date: 12/12/18 11:30 Actual Procedures p Left Total Hip Arthroplasty(Left) - Jl Brennan DO Hospital Course (1) Degenerative joint disease (DJD) of hip: The patient is a 63 -year-old female who presents with long standing history of severe left hip DJD/AVN and failed outpatient conservative treatments including NSAIDs, bracing, injections and home walking/exercise program. The patient's symptoms have progressed to the point where it has been difficult to perform even normal activities of daily living. I indicated the patient for a left total hip arthroplasty, the risks, benefits and complications of the procedure include but not limited to infection, bleeding, damage to bone, nerves, vessels, surrounding soft tissue, may develop blood clots, loss of function, leg length discrepancy, dislocation, failure of the components, loosening of the components, the need for additional surgery and . The patient wished to proceed with surgery at this time and informed consent was obtained. Hospital Course: On 12/12/18 the patient was taken to the operating room, adequate anesthesia administered and underwent a left total hip arthroplasty. The patient tolerated the procedure well and was taken to the PACU in stable condition. Post- operatively the patient was started on a DVT ppx medication and given appropriate IV antibiotics. Consults were placed to pharmacy glycemic control, physical therapy, occupational therapy and case management. On POD#1, the patient did well overnight and their pain was well controlled. Labs were drawn and the Hgb was 10.3. The patient progressed well with PT. Dressings were changed at this time and the incision was clean, dry and intact. On POD#2, the patient continued to progress with PT, pain well controlled, VSS, hgb 10.4. The patients hospital stay was relatively uneventful and they were deemed stable by the orthopedic team and consultants to be discharged home with HH on 12/14/18. Discharge Instructions: Upon discharge the patient may weight bear as tolerates through their operative extremity. They were instructed to keep the incision clean and dry at all times. The patient may shower but should not submerge the incision, avoid bathing, pools and hot tubes. The patient was given a script for pain medication and should take as instructed. The patient was given a script for DVT ppx ASA 325mg BID and should take as directed. The patient was instructed to not drive or travel for long distances until cleared to do so. If the patient develops any symptoms of fevers, chills, nausea, vomiting, increased redness, swelling, pain or drainage from the surgical site, they should notify the office and/or proceed to the nearest emergency room. The patient should follow up in 10-14 days after surgery for their routine post-operative follow-up appointment and should call the office to confirm the date and time. s/p Left NANDINI POD#2 -ancef x 24 -DVT ppx - SCDs, TEDS, ASA BID -WBAT LLE -PT/OT -Posterior hip precautions -PO XR - well aligned well fixed prothesis without fracture/dislocation -am labs - hgb 10.4, stable -DC planning - Home with HH today POD#1 -ancef x 24 -DVT ppx - SCDs, TEDS, ASA BID -WBAT LLE -PT/OT -Posterior hip precautions -PO XR - well aligned well fixed prothesis without fracture/dislocation -am labs - hgb 10.3, post operative anemia secondary to acute operative blood loss and dilutional effect. -DC planning - Home with HH Total Time Total Time Spent Total Time Spent (In Minutes): >60 minutes Total Time Includes: Examination of the Patient, Discharge Planning, Medication Reconciliation and Communication With Other Providers Discharge Plan Discharge Items Patient Disposition: Home - Home Health Services Reason For Visit: LEFT HIP OSTEOARTHRITIS Discharge Diagnosis: Left total hip replacement Condition: Good Discharge Goals: Decrease discomfort, Improve disease control, Improve function, Increase independence and Therapeutic intervention Activity: Per 'Additional Instructions' section Lifting: Wait until after follow-up appointment Bathing Comment: No bathing, pools or hot tubs Sexual Activity: Wait until after follow-up appointment Exercise/Sports: Wait until after follow-up appointment Driving/Machine Use Comment: No driving till cleared by your surgeon Weightbearing: Left weightbearing Non-emergency contact: Primary Care Provider and Surgeon Call non-emergency contact if: you have any medication questions, your symptoms worsen, your pain is not controlled, your pain is worsening, your pain is unusual for you, your pain is concerning for you, you have a fever, your temperature is above 101, your wound has increased redness, your wound has increased drainage and your wound pain has increased Follow-up/Referrals: PCP,NO [Primary Care Provider] - Diet: Carb Consistent or DM2 Addtl Provider Instructions: ACTIVITY RECOMMENDATIONS: SELF CARE INSTRUCTIONS AFTER TOTAL HIP REPLACEMENT Until the incision and soft tissues around your hip have healed, there is a possibility that the hip prosthesis could dislocate. A. Observe the following precautions to prevent dislocation: 1. Don't bend your hip greater than 90 degrees. 2. Avoid crossing your legs or ankles while standing or lying. 3. Sit with your feet placed 6 inches apart. 4. When sitting, keep your knees below your hips. Sit on a firm surface, avoid deep, soft chairs and couches. Use an elevated toilet seat in the bathroom. 5. Don't bend over at the waist. Use a long handled shoehorn and a sock aid to help you put on your shoes and socks. A weight analyst can help you meat pickler objects that are too high or too low to reach. 6. Keep car riding to a minimum for at least one month after surgery. B. Your balance may be shaky for a while. Use crutches or a walker until directed by your doctor. C. Use hand rails when walking on stairs. D. Wear low heeled shoes with non-slip soles. E. Be sure that your floors are free of things that could trip you - throw rugs, electrical cords, small objects. Avoid wet and waxed floors, especially with crutches and canes. F. Try to walk several times a day with rest periods between. G. Continue with all the exercises taught to you in the hospital. Again, make walking a part of your daily routine. SPECIAL CARE INSTRUCTIONS: VERY IMPORTANT TO READ AND REVIEW A. You may still be at risk for phlebitis and blood clots. 1. Wear surgical stockings (ALEXEY hose) for 2 weeks after surgery to improve circulation and reduce swelling. 2. Take Aspirin 325mg twice daily for 4 weeks or as directed by your doctor. This is your blood thinner. 3. High risk patients may be prescribed a stronger blood thinner if necessary. 4. If you are on Coumadin normally, your family doctor/dental instructor should monitor your blood work. Expect a phone call the day of or the day after bloodwork is drawn to adjust your dosage. B. You must take antibiotics before having dental work, bladder, bowel and other surgery. Your doctor will provide you with a permanent card to carry describing precautions. C. Call [facility] if you have a fever, redness or swelling around the incision, cloudy drainage from incision, or sudden increase in pain in your hip, not relieved by your regular pain medication. D. Please call the office at if you have any concerns or questions about your operation or recovery. * YOU MAY SHOWER, NO TUB BATHS UNTIL CLEARED BY YOUR DOCTOR. * WEAR ALEXEY HOSE 20 HOURS PER DAY FOR 2 WEEKS. * YOU SHOULD USE A WALKER OR CRUTCHES FOR 2-4 WEEKS. THIS WILL HELP PREVENT STRAIN ON YOUR HIP MUSCLE AND ALLOW IT TO HEAL PROPERLY. YOU MAY WEAN TO A CANE TOLERATED. * MOST PATIENTS WILL HAVE HOME NURSING FOR THERAPY. IF YOU DECIDE TO DO OUTPATIENT PHYSICAL THERAPY, PLEASE SCHEDULE THIS 3 TIMES PER WEEK. *PREVENA incisional vac is a special dressing covering your incision. This dressing provides a sterile dry environment while you are healing. The dressing is to be left in place for 7 days post-operatively. Your home nurse or surgeon will remove. If you develop any redness or blisters or have any questions notify your surgeon immediately. IF INCISION IS LEAKING THROUGH DRESSING, PLEASE CALL THE OFFICE . FOLLOW UP VISIT: If appointment is not already scheduled: Please call [facility] to make a follow-up appointment for 2 weeks after your surgery at . Prescriptions: New acetaminophen [Pain Reliever] 500 mg Tablet 1,000 mg PO Q8 PRN (Reason: pain) Qty: 90 RF: 0 aspirin 325 mg Tablet,Delayed Release (Dr/Ec) 325 mg PO BID 28 Days Qty: 56 RF: 0 celecoxib [Celebrex] 200 mg Capsule 200 mg PO BID PRN (Reason: pain) Qty: 28 RF: 0 oxycodone 5 mg Tablet 5 mg PO Q6H MDD 6 tabs PRN (Reason: pain) Qty: 30 RF: 0 sennosides [Senokot] 8.6 mg Tablet 17.2 mg PO HS PRN (Reason: constipation) Qty: 28 RF: 0 Continued metformin 500 mg Tablet 500 mg PO BID RF: 0 doxepin 50 mg Capsule 50 mg PO HS RF: 0 atorvastatin 20 mg Tablet 20 mg PO HS RF: 0 clonazepam [Klonopin] 1 mg Tablet 1 mg PO UD PRN (Reason: PRN) RF: 0 topiramate [Topamax] 25 mg Tablet 25 mg PO QAM RF: 0 gabapentin 800 mg Tablet 800 mg PO TID RF: 0 gabapentin 300 mg Capsule 300 mg PO TID PRN (Reason: PRN) RF: 0 topiramate [Topamax] 50 mg Tablet 50 mg PO HS RF: 0 albuterol sulfate [ProAir HFA] 90 mcg/actuation Hfa Aerosol Inhaler 2 puff INHALATION QID PRN (Reason: Wheezing) RF: 0 Pulmicort Flexhaler 90 mcg/actuation Aerosol Powdr Breath Activated 1 inh INHALATION BID RF: 0 Incruse Ellipta 62.5 mcg/actuation Blister With Device 1 inh INHALATION BID RF: 0 duloxetine [Cymbalta] 30 mg Capsule,Delayed Release(Dr/Ec) 30 mg PO BID RF: 0 Discontinued cyclobenzaprine 10 mg Tablet 10 mg PO TID PRN (Reason: Muscle Spasm) RF: 0 meloxicam 15 mg Tablet 15 mg PO QAM RF: 0 aspirin [Aspirin Low Dose] 81 mg Tablet,Delayed Release (Dr/Ec) 81 mg PO DAILY RF: 0 Stand-Alone Forms: [facility], Opioid Pain Management Discharge Orders: Discharge Order (Routine); Ordered 12/14/18 Ordered By: Jl Brennan Admission Data Admit Date/Time: 12/12/18 14:01 Attending Provider: Jl Brennan Admit Provider: Jl Brennan Primary Care Provider: PCP,NO Service: Surgical Services Other Interventions: Discharge Summary Assessment (RN) Last Done: 12/14/18 11:11 DC Date/Time DO NOT enter until pt leaves facility: 12/14/18 12:27
== END 2018-12-14 12:27 | disposition home health service (06) | DRG 470 ==
LOC: ASU 09:08 → 3E 14:01

== ENCOUNTER 2019-11-06 07:09 | Inpatient (IN) ==
--- NOTE | 2019-10-11 14:46 | PAT Medication Instructions ---
Medication Instructions Date of Service October 11, 2019 Home Medications Medication Instructions Recorded acetaminophen [Pain Reliever] 1,000 mg PO Q8 PRN #90 tab 12/13/18 celecoxib [Celebrex] 200 mg PO BID PRN #28 cap 12/13/18 Incruse Ellipta 1 inh INHALATION QAM Pulmicort Flexhaler 2 inh INHALATION HS albuterol sulfate [ProAir HFA] 2 puff INHALATION QID PRN clonazepam [Klonopin] 1 mg PO QAM doxepin 50 mg PO HS gabapentin 300 mg PO TID PRN gabapentin 800 mg PO TID topiramate [Topamax] 50 mg PO HS acetaminophen [Pain Reliever] 1,000 mg PO Q8 PRN celecoxib [Celebrex] 200 mg PO BID PRN duloxetine [Cymbalta] 30 mg PO BID alendronate 10 mg PO QAM aspirin 81 mg PO QAM atorvastatin 40 mg PO PM budesonide-formoterol [Symbicort] 2 puff INHALATION BID duloxetine 60 mg PO QAM ibuprofen 800 mg PO TID PRN metformin 1,000 mg PO BIDM ojhcstkk-hki-wauu-FA-lutein [Centrum Silver Women] 1 tab PO QAM ASK your surgeon for instructions celecoxib [Celebrex] 200 mg PO BID PRN ibuprofen 800 mg PO TID PRN STOP taking 2 weeks before surgery bjyvgnju-gnx-diqm-FA-lutein [Centrum Silver Women] 1 tab PO QAM DO NOT take the morning of surgery alendronate 10 mg PO QAM metformin 1,000 mg PO BIDM Take morning of surgery With a small sip of water, OTHERWISE NOTHING TO EAT OR DRINK AFTER MIDNIGHT: Incruse Ellipta 1 inh INHALATION QAM albuterol sulfate [ProAir HFA] 2 puff INHALATION QID PRN (if needed) clonazepam [Klonopin] 1 mg PO QAM gabapentin 300 mg PO TID PRN (if needed) gabapentin 800 mg PO TID acetaminophen [Pain Reliever] 1,000 mg PO Q8 PRN (if needed, may be taken up to four hours before surgery) duloxetine [Cymbalta] 30 mg PO BID aspirin 81 mg PO QAM budesonide-formoterol [Symbicort] 2 puff INHALATION BID duloxetine 60 mg PO QAM Take evening before surgery Pulmicort Flexhaler 2 inh INHALATION HS albuterol sulfate [ProAir HFA] 2 puff INHALATION QID PRN (if needed) doxepin 50 mg PO HS gabapentin 300 mg PO TID PRN (if needed) gabapentin 800 mg PO TID topiramate [Topamax] 50 mg PO HS acetaminophen [Pain Reliever] 1,000 mg PO Q8 PRN (if needed) duloxetine [Cymbalta] 30 mg PO BID atorvastatin 40 mg PO PM budesonide-formoterol [Symbicort] 2 puff INHALATION BID metformin 1,000 mg PO BIDM Other Notes If you have any questions please call us at [phone] or [phone] or [phone] or [phone]
--- NOTE | 2019-10-12 11:16 | Anesthesiology Consultation ---
Date of Service October 12, 2019 Assessment & Plan (1) Encounter for pre-operative examination: Chart Review Chart Review: Pending: Refer to Additional Notes / Consult section (pending PCP clearance 10/16 (need clarification on chest pressure and anemia)) and Patient seen in Pre Admission Testing Pre op labs show mild anemia- per records- stable since 12/2018- did write PCP note to confirm at clearance appt that anemia stable and that further tx not needed prior to surgery. Awaiting PCP clearance scheduled 10/16 (did write note to PCP to address chest heaviness) History Surgery Operation Date: 11/06/19 13:30 Proposed Procedures p Right Posterior Total Hip Arthroplasty - Jl Brennan, Height/Weight Height: 5 ft 3 in Weight: 66.5 kg Allergies Allergy/AdvReac Type Severity Reaction Status Date / Time No Known Allergies Allergy Verified 10/09/19 11:34 Medications Home Medications Medication Instructions Recorded Confirmed Last Taken Incruse Ellipta 1 inh INHALATION QAM 10/19/18 10/09/19 12/11/18 16:00 Pulmicort Flexhaler 2 inh INHALATION 10/19/18 10/09/19 12/11/18 16:00 albuterol sulfate [ProAir HFA] 2 puff INHALATION QID PRN 10/19/18 10/09/19 Unknown clonazepam [Klonopin] 1 mg PO QAM 10/19/18 10/09/19 12/11/18 07:00 doxepin 50 mg PO HS 10/19/18 10/09/19 12/11/18 16:00 gabapentin 300 mg PO TID PRN 10/19/18 10/09/19 12/12/18 05:00 gabapentin 800 mg PO TID 10/19/18 10/09/19 12/11/18 16:00 topiramate [Topamax] 50 mg PO HS 10/19/18 10/09/19 12/11/18 07:00 acetaminophen [Pain Reliever] 1,000 mg PO Q8 PRN #90 tab 12/13/18 10/09/19 Unknown celecoxib [Celebrex] 200 mg PO BID PRN #28 cap 12/13/18 10/09/19 Unknown duloxetine [Cymbalta] 30 mg PO BID 04/09/19 02/03/20 04/07/19 total of 60mg alendronate 10 mg PO QAM 10/09/19 10/09/19 Unknown aspirin 81 mg PO QAM 10/09/19 10/09/19 Unknown atorvastatin 40 mg PO PM 10/09/19 10/09/19 Unknown budesonide-formoterol [Symbicort] 2 puff INHALATION BID 10/09/19 10/09/19 Unknown duloxetine 60 mg PO QAM 10/09/19 10/09/19 Unknown ibuprofen 800 mg PO TID PRN 10/09/19 10/09/19 Unknown metformin 1,000 mg PO BIDM 10/09/19 10/09/19 Unknown tronexit-zgj-otfo-FA-lutein 1 tab PO QAM 10/09/19 10/09/19 Unknown [Centrsneait Silver Women] Past Medical History Medical History (Updated 10/12/19 @ 11:20 by Thalia Crane PA-C) Anxiety Chronic obstructive pulmonary disease Stable - albuterol use every few weeks Depression Diabetes mellitus, type 2 Glucose fluctuates Emphysema lung Hx of avascular necrosis of capital femoral epiphysis RECENT DIAGNOSIS Hx of migraines Stable Hyperlipidemia Osteoarthritis Seasonal allergies Exercise / Class Metabolic Activity III < 4 Walking/Shop/Light housework (one flight of stairs- mild SOB- no chest pain ) Past Family History Family History (Updated 10/09/19 @ 11:51 by Savanna Schmidt RN) Father Family history of diabetes mellitus Sister Family history of diabetes mellitus Mother FHx: pancreatic cancer Past Surgical History Surgical History (Updated 10/09/19 @ 11:52 by Savanna Schmidt RN) History of appendectomy History of cataract extraction with lens replacement BILATERAL History of section X2 History of cholecystectomy History of colonoscopy History of hysterectomy TOTAL History of left hip replacement History of lumbar fusion Past Anesthesia History No Hx of Anesthesia Complications and No Family Hx of Anesthesia Complications History of PONV No Hx of PONV and No Hx of Motion Sickness Social History Smoking Status: Current every day smoker tobacco type: cigarettes Smoking cigarettes per day: 1/2 PPD X 20+ YEARS Do You Dip or Chew Tobacco: No Hx Alcohol Use: No Hx Substance Use: No substance use type: does not use Review of Systems Chest pressure/heaviness occ. Present x one month. No associated nausea. Associated SOB. PCP aware- feels secondary to COPD and mucous in lungs. Chronic coughing and wheezing- stable Patient denies shortness of breath at rest , reflux, palpitations. No hx of seizures, stroke, PR, apnea/snoring. No hx of blood clots or blood transfusions No recent steroid use Physical Exam Vital Signs VITALS BP 132/83 P 97 bpm TEMP 97.8 SP02 96% RESP 16 Constitutional no acute distress ENMT Mouth: no TMJ clicking Thyromental Distance: < 3.5 Finger Breadths (3.0) Mallampati Class: II Missing all top teeth. Missing two bottom front teeth. Neck neck extension not limited Respiratory normal respiratory effort; no respiratory distress Auscultation: lungs clear to auscultation bilaterally and + diminished lung sounds (throughout- moderate ); no wheezes Cardiovascular Rate/Rhythm: regular rate and regular rhythm Heart Sounds: no murmur Vessels: no carotid bruit Extremities: no edema Musculoskeletal Spine: normal cervical ROM and no pain with cervical ROM Neurologic moves all extremities Psychiatric Orientation: alert Testing Laboratory Results 10/12/19 11:13 10/12/19 11:13 PT 9.5 Seconds (9.0-12.0) 10/12/19 11:13 INR 0.9 (0.9-1.1) 10/12/19 11:13 APTT 23.4 Seconds (21.0-31.0) 10/12/19 11:13 Hemoglobin A1c 6.0 % (4.5-5.6) H 10/12/19 11:13 Urine Color Yellow 10/12/19 11:13 Urine Appearance Clear (Clear) 10/12/19 11:13 Urine pH 5.5 (4.5-7.5) 10/12/19 11:13 Ur Specific [place] 1.017 (1.000-1.030) 10/12/19 11:13 Urine Protein Negative (Negative) 10/12/19 11:13 Urine Glucose (UA) Negative (Negative) 10/12/19 11:13 Urine Ketones Negative (Negative) 10/12/19 11:13 Urine Nitrite Negative (Negative) 10/12/19 11:13 Ur Leukocyte Esterase Negative (Negative) 10/12/19 11:13 Blood Type AB Positive 10/12/19 11:13 Antibody Screen NEGATIVE 10/12/19 11:13 Electrocardiogram Date: 10/12/19 Findings: + NSR @ (88) Chest X-Ray Date: 10/12/19 Findings: + NAD
[2019-10-12 12:37] LABS: Basophils # (auto) 0.03 K/uL (0-0.2); Basophils % (auto) 0.6 %; Eosinophils # (auto) 0.06 K/uL (0-0.5); Eosinophils % (auto) 1.1 %; Hematocrit (blood only) 32.9 % (37-47); Hemoglobin 10.6 g/dL (12.0-16.0); Lymphocytes # (auto) 1.55 K/uL (1.2-3.4); Lymphocytes % (auto) 28.7 %; Mean Corpuscular Hemoglobin 29.7 pg (25-34); Mean Corpuscular Hgb Conc 32.2 g/dL (32-36); Mean Corpuscular Volume 92.2 fL (80-100); Mean Platelet Volume 9.7 fL (7.4-10.4); Monocytes # (auto) 1.01 K/uL (0.11-0.59); Monocytes % (auto) 18.7 %; Neutrophils # (auto) 2.76 K/uL (1.4-6.5); Neutrophils % (auto) 50.9 %; Platelet Count 455 K/uL (130-400); RDW Coefficient of Variation 13.7 % (11.5-14.5); RDW Standard Deviation 46.5 fL (36.4-46.3); Red Blood Count 3.57 M/uL (4.2-5.4); White Blood Count 5.41 K/uL (4.8-10.8)
--- NOTE | 2019-10-12 12:42 | XRay Report ---
XR chest Pre-admission PA/Lat CLINICAL HISTORY: Preoperative evaluation. COMPARISON STUDY: Chest radiograph November 07, 2018. FINDINGS: Lung volumes are normal. Lungs are clear. There is no pneumothorax or pleural effusion. Car diac size is normal. Mediastinal contours are normal. There is no evidence for pulmonary edema. Incid ental note is made of multiple old right rib fractures. Cholecystectomy clips are noted. IMPRESSION: No acute cardiopulmonary findings. ACT 112: Negative or not required by law. Electronically signed by: Karthik Cutler M.D. 10/12/2019 12:40 PM
[2019-10-12 12:44] LABS: Appearance Urine Clear (Clear); Bilirubin Urine Negative (Negative); Blood Urine Negative (Negative); Color Urine Yellow; Glucose Urine UA Negative (Negative); Ketones Urine Negative (Negative); Leukocyte Esterase Urine Negative (Negative); Nitrite Urine Negative (Negative); Protein Urine Negative (Negative); Specific Gravity Urine 1.017 (1.000-1.030); Urobilinogen Urine Negative (Negative); pH Urine 5.5 (4.5-7.5)
[2019-10-12 12:48] LABS: INR 0.9 (0.9-1.1); Partial Thromboplastin Ratio 0.9; Partial Thromboplastin Time 23.4 Seconds (21.0-31.0); Prothrombin Time 9.5 Seconds (9.0-12.0)
[2019-10-12 12:49] LABS: Albumin Level 3.6 gm/dl (3.4-5.0); BUN Creatinine Ratio 15.2 (10-20); Calcium 9.4 mg/dl (8.5-10.1); Creatinine Clr Calc Pharmacy 63.6 ml/min; Potassium 3.8 mmol/L (3.5-5.1)
[2019-10-12 13:40] LABS: Estimated Average Glucose 126 mg/dl
--- NOTE | 2019-10-12 14:27 | Electrocardiogram Report ---
Test Reason : Blood Pressure : / mmHG Vent. Rate : 088 BPM Atrial Rate : 088 BPM P-R Int : 148 ms QRS Dur : 078 ms QT Int : 374 ms P-R-T Axes : 084 050 069 degrees QTc Int : 452 ms Normal sinus rhythm Normal ECG When compared with ECG of 07-NOV-2018 18:12, No significant change was found Confirmed by Real Rm ([id number]) on 10/12/2019 2:27:01 PM Referred By: Jl Brennan Confirmed By:Real Rm
--- NOTE | 2019-11-04 12:23 | History & Physical Report ---
Date of Service November 04, 2019 Assessment & Plan (1) Avascular necrosis of bone of right hip: I have indicated the patient for right total hip replacement. The risks, benefits and complications of surgery were explained to the patient which include but not limited to infection, acute blood loss, DVT/PE, injury to nerves, vessels, bone, soft tissue, arthrofibrosis, chronic pain, failure of the prosthesis, hip dislocation, leg length discrepancy, need for additional surgery, cardiac and pulmonary events and . The patient wished to proceed with surgery and informed consent was obtained at this time. We will plan for ASA 81mg BID post-operatively for DVT prophylaxis. Upon discharge the patient will be discharged home with home health services. Appropriate clearances by PCP were obtained. History of Present Illness Chief Complaint: Right hip pain/avn/djd Primary Care Provider: Gunjan Goyal MD The patient is a 64 year old female who presents with complaints of severe right hip pain and DJD/AVN. The patient has failed outpatient conservative treatments to this point which included NSAIDs, bisphosphonates, PT, protected WB and a home walking, exercise program. The patient's pain and limited function have progressed to the point where they severely hinder their activities of daily living and they no longer tolerate exercise programs. They are requesting to proceed with total hip replacement surgery. Allergies Allergy/AdvReac Type Severity Reaction Status Date / Time No Known Allergies Allergy Verified 11/06/19 07:35 Home Medications Home Medications Medication Instructions Recorded Confirmed Type Incruse Ellipta 1 inh INHALATION QAM 10/19/18 11/06/19 History Pulmicort Flexhaler 2 inh INHALATION HS 10/19/18 11/06/19 History albuterol sulfate [ProAir HFA] 2 puff INHALATION QID PRN 10/19/18 11/06/19 History clonazepam [Klonopin] 1 mg PO QAM 10/19/18 11/06/19 History doxepin 50 mg PO HS 10/19/18 11/06/19 History gabapentin 300 mg PO TID PRN 10/19/18 11/06/19 History gabapentin 800 mg PO TID 10/19/18 11/06/19 History topiramate [Topamax] 50 mg PO HS 10/19/18 11/06/19 History acetaminophen [Pain Reliever] 1,000 mg PO Q8 PRN #90 tab 12/13/18 11/06/19 Rx celecoxib [Celebrex] 200 mg PO BID PRN #28 cap 12/13/18 11/06/19 Rx duloxetine [Cymbalta] 30 mg PO BID 12/13/18 11/06/19 History alendronate 10 mg PO QAM 10/09/19 11/06/19 History aspirin 81 mg PO QAM 10/09/19 11/06/19 History atorvastatin 40 mg PO PM 10/09/19 11/06/19 History budesonide-formoterol [Symbicort] 2 puff INHALATION BID 10/09/19 11/06/19 History duloxetine 60 mg PO QAM 10/09/19 11/06/19 History ibuprofen 800 mg PO TID PRN 10/09/19 11/06/19 History metformin 1,000 mg PO BIDM 10/09/19 11/06/19 History hqzbwhpu-lig-usgd-FA-lutein 1 tab PO QAM 10/09/19 11/06/19 History [Centrum Silver Women] Past Med/Surg History Medical History Anxiety Chronic obstructive pulmonary disease Stable - albuterol use every few weeks Depression Diabetes mellitus, type 2 Glucose fluctuates Emphysema lung Hx of avascular necrosis of capital femoral epiphysis RECENT DIAGNOSIS Hx of migraines Stable Hyperlipidemia Osteoarthritis Seasonal allergies Surgical History History of appendectomy History of cataract extraction with lens replacement BILATERAL History of section X2 History of cholecystectomy History of colonoscopy History of hysterectomy TOTAL History of left hip replacement History of lumbar fusion Family History Father Family history of diabetes mellitus Sister Family history of diabetes mellitus Mother FHx: pancreatic cancer Social History Preferred Language: Bengali Communication Ability: 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 Beliefs That Will Affect Care: None Current Living Situation: Significant Other Feels Safe at Home: Yes Safety Concerns: Feels Safe At This Time Smoking Status: Current every day smoker Tobacco Type: cigarettes ; Cigarettes Per Day: 1/2 PPD X 20+ YEARS ; Do You Dip or Chew Tobacco: No ; Second Hand Exposure: No ; Hx Alcohol Use: No Hx Substance Use: No Review of Systems Review of Systems: All systems reviewed & are unremarkable except as noted in HPI & below Constitutional: as per Subjective / HPI Physical Exam Physical Exam: RLE NVSI +EHL/FHL/TA/GS SILT grossly, +2 DP pulse, compartments soft NT, painful ROM of the hip, antalgic gait. Constitutional: WD/WN, vitals as above Eyes: PERRL, conjunctivae normal, anicteric sclerae ENMT: external ear and nose normal, oropharynx normal Neck: trachea midline, no thyromegaly Respiratory: normal respiratory effort, lungs clear to auscultation Cardiovascular: RRR, no murmur, no edema Gastrointestinal (Abdomen): normal bowel sounds, soft, nontender, no hepatosplenomegaly Musculoskeletal: no cyanosis or clubbing, extremities motor strength 5/5 Skin: no rashes, warm and dry Neurologic: patellar DTR's 2+ bilat, sensation intact Psychiatric: A+Ox3, euthymic affect Lymphatic: no cervical or axillary lymphadenopathy Results & Data Diagnostic Findings Multiple views of the hip demonstrates moderate to severe DJD with significant AVN and loss of the joint space. +osteophytes, +sclerosis. MRI of the right hip demonstrated progressive, advanced AVN measuring 4.1 x 3.3 cm, focal subchondral collapse.
[~2019-11-06 07:09] MED LIST changes: -BUPIVACAINE 0.5 % 5 MG/1 ML PF 10ML VIAL ONE; -GABAPENTIN 300 MG x 2 PO SCH; +GABAPENTIN 600 MG DOSE PO SCH; +LIDOCAINE HCL 2% 2 ML VIAL/AMP(20MG/ML) INFIL ONE; +METOCLOPRAMIDE HCL 10 MG TABLET PO SCH; +MIDAZOLAM HCL 1 MG/ML 2ML VIAL ONE; +PROPOFOL IV EMULSION 10 MG/ML 20 ML VIAL IV ONE; -ROPIVACAINE 0.5% HCL/PF 150 MG, BUPIVACAINE 0.5% MPF 30 ML, EPINEPHrine 30MG/30ML (OR U... INFIL SCH; +ROPIVACAINE 0.5% HCL/PF 150 MG, BUPIVACAINE 0.5% MPF 30 ML, EPINEPHrine 30MG/30ML (OR U... INSTIL SCH; +TRANEXAMIC ACID / 0.7% NACL 1,000 MG/100 ML BAG IV ONE; -TRANEXAMIC ACID 1,000 MG **IV Intra-op IV SCH; -TRANEXAMIC ACID 1,000 MG **IV Pre-op IV SCH; +fentaNYL citrate 100 MCG/2 ML VIAL ONE
[2019-11-06] MEDS ORDERED: BUPIVACAINE 0.5 % 5 MG/1 ML PF 10ML VIAL ONE (07:10)
[2019-11-06] MEDS ORDERED: ONDANSETRON INJ 2 MG/ML 2 ML VIAL IV PRN ×2 (08:03→12:29)
[2019-11-06] MEDS ORDERED: ePHEDrine sulfate 50 MG/ML AMP IV PRN (08:03)
[2019-11-06] MEDS ORDERED: fentaNYL citrate 100 MCG/2 ML VIAL IV PRN (08:03)
[2019-11-06] MEDS ORDERED: ATROPINE SULFATE 0.1 MG/ML 10ML SYR IV PRN (08:03)
[2019-11-06] MEDS ORDERED: ORTHO JOINT ANESTHETIC ONE (08:31)
[2019-11-06] MEDS ORDERED: BACITRACIN INJ 50,000 UNIT VIAL ONE (08:31)
--- NOTE | 2019-11-06 08:41 | History & Physical Bridge Note ---
Date of Service November 06, 2019 History & Physical Bridge Note I have examined the patient, reviewed the History & Physical and in the interval since the performance of the History & Physical I have noted the following changes of clinical significance: no changes noted
[2019-11-06] MEDS ORDERED: TRANEXAMIC ACID / 0.7% NACL 1000MG/100ML BAG IV ONE (08:49)
[2019-11-06] MEDS ORDERED: TRANEXAMIC ACID / 0.7% NACL 1,000 MG/100 ML BAG IV SCH (08:50)
[2019-11-06] MEDS ORDERED: KETAMINE HCL INJ 50 MG/ML 10 ML VIAL ONE (09:15)
[2019-11-06] MEDS ORDERED: DexMEDEtomidine HCL IV 100 MCG/ML VIAL ONE (09:26)
[2019-11-06] MEDS ORDERED: PHENYLEPHRINE 100MCG/ML 5ML SYR ONE (10:02)
[2019-11-06] MEDS ORDERED: PHENYLEPHRINE HCL 10 MG/ML VIAL ONE (10:02)
--- NOTE | 2019-11-06 10:33 | Post Operative Brief Note ---
Immediate Post Op Note v1 Date of Surgery November 06, 2019 Pre & Post Diagnosis Operation Date: 11/06/19 09:00 Pre-Op Diagnosis: Avascular necrosis of bone of right hip Post-Op Diagnosis: Avascular necrosis of bone of right hip I identified the patient and participated in the time-out.: Yes Procedure Operation Date: 11/06/19 09:00 Actual Procedures p Right Posterior Total Hip Arthroplasty uncemented(Right) - Jl Brennan DO Surgeon Jl Brennan DO Drywall Contractor Deshaun Velazquez Estimated Blood Loss 85 Findings Consistent with Post-Op Diagnosis Fluids 1500 cc LR Specimens femoral head Anesthesia Type Spinal MAC Complications none Disposition Disposition: Recovery Room Overlapping Procedure I was present for: the critical portions of procedure. I was immediately available: during the entire case. Back up surgeon: was not required during procedure.
--- NOTE | 2019-11-06 10:36 | Operative Report ---
Post Operative Report Pre & Post Diagnosis Operation Date: 11/06/19 09:00 Pre-Op Diagnosis: Avascular necrosis of bone of right hip Post-Op Diagnosis: Avascular necrosis of bone of right hip I identified the patient and participated in the time-out.: Yes Procedure Operation Date: 11/06/19 09:00 Actual Procedures p Right Posterior Total Hip Arthroplasty uncemented(Right) - Jl Brennan DO Surgeon Jl Brennan DO Salesperson Household Appliances Deshaun Velazquez Estimated Blood Loss 85 Findings Consistent with Post-Op Diagnosis Fluids 1500 cc LR Specimens femoral head Drains none Anesthesia Type Spinal MAC Disposition Disposition: Recovery Room Indications The patient is a 64-year-old female who presents with severe progressive right hip AVN who has failed outpatient conservative treatments. I indicated the patient for a total hip replacement and the risks and benefits were explained in detail which included but not limited to infection, bleeding, blood clot, damage to surrounding bone, nerves, vessels, soft tissue, hip dislocation, failure of the prosthesis, leg length discrepancy, need for additional surgery and . The patient agreed to proceed with replacement of the hip and informed consent was obtained. Appropriate clearances were obtained. Description of Procedure COMPONENTS USED: Edwin bio hip system: Acetabulum size 48, femur size 9 standard offset, femoral head 32-3.5, liner 4832 high wall, acetabular screw 35 mm x 1. Following induction of adequate spinal anesthesia, the patient was transferred to the OR table and placed in lateral decubitus position with left hip down. The right hip was prepped and draped in the typical sterile fashion. A timeout was performed, patient identified and site ashu confirmed. Appropriate antibiotics were given. A standard posterolateral/Kala-Langenbeck incision was made. Subcutaneous tissue was sharply dissected. Electrocautery was utilized for hemostasis. The fascia was incised throughout the length of the wound and retracted with the Charnley retractor. The bursa was taken down and the short external rotators were identified. The piriformis was tagged with #1 Vicryl. The short external rotators and capsule were divided from the posterior aspect of the femur using electrocautery. The posterior capsule was tagged with #1 Vicryl. Both external rotators and posterior capsule were swept posterior and protected, along with protecting the sciatic nerve. The hip was dislocated by flexion and internally rotation in a controlled manner and exposure of the femoral neck was gained with an old-style Hohmann and a blunt cobra retractor. A femoral cutting guide was utilized for making the appropriate level femoral ne ck cut with reciprocating saw. The femoral head was removed, measured and reserved on the back table. Next, attention was turned to the acetabulum. A posterior and anterior offset retractor was placed to gain adequate exposure. Acetabular labrum as well as posterior capsule elements were removed using electrocautery and forceps. Fovea centralis was cleared of all soft tissue. Sequential reaming was performed starting at 42 mm and carried up to a 47 mm and decision was made to proceed with impaction of a 48 mm trabecular metal cup. This was impacted and held using a single 35 mm bone screw. The trial acetabular liner was placed at this time. Next, attention was turned to the proximal femur where a Bovie and pickup was used to further clear short external rotators from their insertion on the femur. Box osteotome and canal finder was used to gain access to the femoral canal and the lateral reamer on power was used to further open the proximal lateral canal. Sequentially rasping was carried up to a 9 which gave good fit and fill of the proximal femur. A trial reduction was carried out with a standard offset femoral neck component a 32-3.5 mm femoral head. The trial reduction was stable in all degrees of rotation with no [id number] impingement. The hip was dislocated, trial components were removed and access to the acetabulum was re-established. The trial liner was removed and the cup was irrigated to ensure all debris was removed. The final acetabular liner was inserted and properly seated in the cup. Access to the femur was once more gained and the size 9 femoral stem with standard offset was impacted into position. The hip was once more assessed with the 32-3.5 mm femoral head. Stability was accessed and found to be excellent with equal leg lengths. The hip was dislocated for the last time and the final 32-3.5 ceramic femoral head was impacted in place and the hip was reduced. Range of motion was checked once again and found to be stable. A Betadine soak was performed. After 3 minutes, the hip was once more irrigated with copious sterile saline solution with bacitracin. The ban-incisional soft tissue was injected utilizing [place] ortho mix which includes a combination of Ropivicaine 0.5% 150mg, Bupivicaine 0.5%/Epinephrine 1:200,000 30ml, Toradol 30mg, Dexamethasone 4mg, Ketamine 10mg, Clonidine 100mcg and NSS 30ml Orthomix solution. The piriformis, external rotators and capsule were repaired to the greater trochanter through bone tunnels using #5 FiberWire. The fascia was closed using #1 Vicryl, subcutaneous tissue was closed using 2-0 Vicryl, and skin was closed fatoumata. Sterile dressings were applied which included Tamara incisional VAC. The patient tolerated the procedure well and was transported to PACU in stable condition. Due to the complex nature of the procedure, the entire surgery was performed with the operational assistance of Deshaun Velazquez PA-C. The assistant to the president, under direct supervision, was involved in the actual performance of all aspects of the surgical procedure including patient positioning, hemostasis, tissue retraction, instrument management and wound closure. I attest to the content of the Intraoperative Record and any orders documented therein. Any exceptions are noted below.
[2019-11-06] MEDS ORDERED: ePHEDrine sulfate 50 MG/ML SYR ONE (10:38)
--- NOTE | 2019-11-06 12:13 | Anesthesiology Progress Note ---
Date of Service November 06, 2019 Anesthesia Post Procedure Vital Signs Vital Signs: Temp Pulse Resp BP BP Pulse Ox 11/06/19 12:10 63 13 98/59 L 99 11/06/19 12:00 36.3 C L 64 13 102/56 L 97 11/06/19 11:50 64 13 95/54 L 95 11/06/19 11:40 66 15 99/63 L 97 11/06/19 11:30 69 14 101/61 97 11/06/19 11:20 71 14 108/59 L 97 11/06/19 11:10 68 13 109/60 100 11/06/19 11:00 69 14 98/67 L 98 11/06/19 10:52 36.1 C L 69 14 88/51 L 98 11/06/19 07:47 36.4 C L 88 20 134/96 99 Pain Intensity Right Hip: Pain Intensity: 7 Transfer of Care Handoff Completed per policy Notes Mental Status: alert / awake / arousable Patient Amnestic to Procedure: Yes Nausea / Vomiting: adequately controlled Pain: adequately controlled Airway Patency, RR, SpO2: stable & adequate BP & HR: stable & adequate Hydration State: stable & adequate Neuraxial Anesthesia: was administered and sensory block is resolving Anesthetic Complications: no major complications apparent and Pt Satisfied with anesthetic care
--- NOTE | 2019-11-06 12:15 | XRay Report ---
XR hip 1V RT w pelvis HISTORY: 64 years-old Female IN PACU - A/P PELVIS and LATERAL HIP right hip total joint arthroplast y COMPARISON: Pelvis and hip radiograph 12/12/2018 TECHNIQUE: AP view of the pelvis with crosstable lateral view of the right hip FINDINGS: Unchanged left hip total joint arthroplasty. Right hip total joint arthroplasty has been placed in th e interval demonstrates satisfactory alignment. No acute fracture or retained foreign body. Lateral s kin fatoumata are noted along with expected postsurgical soft tissue swelling and deep tissue air. Fusi on hardware and discectomy changes of the lower lumbar spine. IMPRESSION: Right hip total joint arthroplasty with expected postoperative findings. ACT 112: Negative or not required by law. The above report was generated using voice recognition software. It may contain grammatical, syntax o r spelling errors. Electronically signed by: Shalom aBumann M.D. 11/06/2019 12:14 PM
[2019-11-06] MEDS ORDERED: bisacodyL 10 MG SUPP PR PRN (12:29)
[2019-11-06] MEDS ORDERED: GABAPENTIN 300 MG CAP PO PRN (12:29)
[2019-11-06] MEDS ORDERED: MAGNESIUM HYDROXIDE SUSP 30 ML UDC PO PRN (12:29)
[2019-11-06] MEDS ORDERED: METOCLOPRAMIDE HCL INJ 5 MG/ML 2 ML VIAL IV PRN (12:29)
[2019-11-06] MEDS ORDERED: NALOXONE HCL 0.4 MG/1 ML VIAL/CARP IV PRN (12:29)
[2019-11-06] MEDS ORDERED: PHARMACY GLYCEMIC MGMT CONSULT PRN (12:42)
[2019-11-06] MEDS ORDERED: GLUCAGON FOR INJ 1 MG VIAL IM PRN (12:45)
[2019-11-06] MEDS ORDERED: CARBOHYDRATES FOR HYPOGLYCEMIA PO PRN (12:45)
[2019-11-06] MEDS ORDERED: GLUCOSE 40% GEL 15 GM TUBE PO PRN (12:45)
[2019-11-06] MEDS ORDERED: DEXTROSE 50% 50 ML SYRINGE IV PRN (12:45)
[2019-11-06] MEDS ORDERED: GLUCOSE 10 TABS/TUBE PO PRN (12:45)
[2019-11-06] MEDS ORDERED: INSULIN ASPART 100 UNITS/ML 3 ML PEN SC ONE (13:00)
[2019-11-06] MEDS ORDERED: NovoLIN-N (NPH) PER UNIT CHARGE SQ ONE (13:00)
[2019-11-06] MEDS ORDERED: ALBUTEROL HFA 8 GM INHALER INH PRN (13:23)
--- NOTE | 2019-11-06 14:01 | Pharmacy Report ---
Glycemic Control Consultation - Date of Service November 06, 2019 - Scope Scope: Glycemic Pharmacist consulted for glycemic control and to write orders per [facility] inpatient glycemic control protocol. - Objective Weight: 67 kg Accuchecks BSG (last 24hrs): 11/06/19 11/06/19 08:15 10:53 POC Glucose 149 H 182 H HbA1c: Hemoglobin A1c 6.0 % (4.5-5.6) H 10/12/19 11:13 - Recent Pertinent Medications Outpatient Anti-diabetic Regimen: * metformin 1 gm PO BID Risk Factors for Insulin Resistance: * Steroids: dexamethasone 8 mg PO preoperatively + dexamethasone 4 mg topically * Recent Surgery: POD 0 for R hip surgery * Diet: T2DM - Assessment & Plan Assessment & Plan: ASSESSMENT: * Ms Lowry is a 64 y/o F with a PMH of well controlled T2DM on metformin who presents for R hip surgery. Patient received steroids as mentioned above. * Due to steroids, will give one time NPH 25 units (0.4 units/kg) to cover hyperglycemia. Consider additional basal insulin tomorrow based upon fasting blood sugar. * Will utilize weight-based stress of 3 Novolog for now. Plan to loosen tomorrow. * Hold metformin for now due to surgery. Will plan to restart either POD 1 or 2 based upon PO intake and kidney function. PLAN FOR INPATIENT GLYCEMIC CONTROL: * Holding outpatient oral diabetes medications- plan to restart POD 1 or 2 * Basal insulin * NPH 25 units SQ x 1 * Bolus insulin * NovoLog per scale ACHS or Q6hrs while NPO * Goal Range: Low 110 mg/dL - High 140 mg/dL * Correction Factor: 25 mg/dL/unit * Nutritional / Prandial insulin per carb ratio of 1 unit per 8 grams CHO consumed OUTPATIENT RECOMMENDATION * continue home regimen as HbA1C in goal range. Thank you.
[2019-11-06] MEDS: ACETAMINOPHEN 500 MG TAB PO SCH ×2 (14:29→20:50)
[2019-11-06] MEDS: GABAPENTIN 800 MG TAB PO SCH ×2 (14:29→18:24)
[2019-11-06] MEDS: KETOROLAC TROMETHAMINE 15 MG/ML VIAL IV SCH ×2 (14:30→19:59)
--- NOTE | 2019-11-06 15:04 | Orthopedic Progress Note ---
Date of Service November 06, 2019 Assessment & Plan (1) Avascular necrosis of bone of right hip: s/p R NANDINI -ancef x 24 -DVT ppx: SCDs, TEDs, 81mg ASA BID -WBAT RLE -PT/OT -Posterior hip precautions -Postop x-ray demonstrates a well aligned well fixed prosthesis without evidence of fracture, dislocation. -am labs -DC planning Admission and Anticipated Discharge Date Admission Date: November 06, 2019 Subjective Post Operative Progress Note Patient seen sitting up in bed, comfortable, denies complaints, pain well controlled, no acute issues. Review of Systems Review of Systems: All systems reviewed & are unremarkable except as noted in HPI & below Constitutional: as per Subjective / HPI Physical Exam Physical Exam: RLE NVSI +EHL/FHL/TA/GS SILT grossly, +2 DP pulse, compartments soft NT, dressing cdi. Constitutional: WD/WN, vitals as above Results & Data ([place]) Vital Signs (Past 12 Hours) Vital Signs Temp Pulse Pulse Resp BP BP Pulse Ox 11/06/19 14:04 86 16 113/72 96 11/06/19 13:19 84 16 131/75 96 11/06/19 12:59 76 16 113/68 98 11/06/19 12:31 36.5 C 16 104/52 L 100 11/06/19 12:10 63 13 98/59 L 99 11/06/19 12:00 36.3 C L 64 13 102/56 L 97 11/06/19 11:50 64 13 95/54 L 95 11/06/19 11:40 66 15 99/63 L 97 11/06/19 11:30 69 14 101/61 97 11/06/19 11:20 71 14 108/59 L 97 11/06/19 11:10 68 13 109/60 100 11/06/19 11:00 69 14 98/67 L 98 11/06/19 10:52 36.1 C L 69 14 88/51 L 98 11/06/19 07:47 36.4 C L 88 20 134/96 99
[2019-11-06] MEDS: CEFAZOLIN 2000MG 2,000 MG/15 ML SYR IV SCH ×2 (15:28→23:53)
[2019-11-06] MEDS: SODIUM CHLORIDE 0.9% 1000ML 1,000 ML IV SCH (15:28)
[2019-11-06] MEDS: OXYCODONE HCL IR 5 MG TAB (IMMEDIATE RELEASE) PO PRN ×3 (15:30→23:52)
[2019-11-06] MEDS: DULOXETINE HCL 30 MG CAP PO SCH (16:15)
[2019-11-06] MEDS: HYDROmorphone INJ 0.5 MG/0.5 ML SYR IV PRN (17:36)
[2019-11-06] MEDS: TOPIRAMATE 50 MG TAB PO SCH (18:24)
[2019-11-06] MEDS: DOXEPIN HCL 50 MG CAPSULE PO SCH (18:24)
[2019-11-06] MEDS: ATORVASTATIN 40 MG TAB PO SCH (18:25)
[2019-11-06] MEDS: INSULIN ASPART 100 UNITS/ML 3 ML PEN SC SCH ×2 (18:37→20:51)
[2019-11-06] MEDS ORDERED: clonazePAM 1 MG TAB PO STA (19:13)
[2019-11-06] MEDS: NICOTINE 21 MG/24 HR TDSY TD SCH (19:53)
[2019-11-06] MEDS: SENNA 8.6 MG TAB PO SCH (20:49)
[2019-11-06] MEDS: DOCUSATE SODIUM 100 MG CAP PO SCH (20:50)
[2019-11-06] MEDS: FLUTICASONE FUROATE 100MCG 14 PUFFS/INHALER INH SCH (20:50)
[2019-11-07] MEDS: SODIUM CHLORIDE 0.9% 1000ML 1,000 ML IV SCH (01:09)
[2019-11-07] MEDS: HYDROmorphone INJ 0.5 MG/0.5 ML SYR IV PRN ×5 (01:41→18:24)
[2019-11-07] MEDS: KETOROLAC TROMETHAMINE 15 MG/ML VIAL IV SCH ×2 (01:43→07:46)
[2019-11-07] MEDS ORDERED: INSULIN ASPART 100 UNITS/ML 3 ML PEN SC SCH (02:00)
[2019-11-07] MEDS: OXYCODONE HCL IR 5 MG TAB (IMMEDIATE RELEASE) PO PRN ×5 (03:53→21:02)
[2019-11-07] MEDS: ACETAMINOPHEN 500 MG TAB PO SCH ×3 (05:22→20:55)
[2019-11-07 07:35] LABS: Hematocrit (blood only) 30.3 % (37-47); Hemoglobin 9.4 g/dL (12.0-16.0); Mean Corpuscular Hemoglobin 29.2 pg (25-34); Mean Corpuscular Volume 94.1 fL (80-100); Mean Platelet Volume 9.9 fL (7.4-10.4); Platelet Count 449 K/uL (130-400); RDW Coefficient of Variation 13.8 % (11.5-14.5); RDW Standard Deviation 47.7 fL (36.4-46.3); Red Blood Count 3.22 M/uL (4.2-5.4); White Blood Count 12.11 K/uL (4.8-10.8)
[2019-11-07 07:36] LABS: BUN Creatinine Ratio 25.9 (10-20); Calcium 8.8 mg/dl (8.5-10.1); Creatinine Clr Calc Pharmacy 58.2 ml/min; Est GFR (African American) 77.8; Est GFR (Non-African American) 67.1; Potassium 4.5 mmol/L (3.5-5.1)
[2019-11-07] MEDS: NICOTINE 21 MG/24 HR TDSY TD SCH (07:47)
[2019-11-07] MEDS: MULTIVITAMIN TAB PO SCH (07:48)
[2019-11-07] MEDS: FLUTICASONE/VILANTEROL 100/25MCG 14 PUFFS/INHALER INH SCH (07:48)
[2019-11-07] MEDS: GABAPENTIN 800 MG TAB PO SCH ×3 (07:49→17:26)
[2019-11-07] MEDS: ASPIRIN 81 MG ECTAB PO SCH ×2 (07:49→20:54)
[2019-11-07] MEDS: UMECLIDINIUM BROMIDE 62.5MCG/BLISTER 7 PUFFS/INHALER INH SCH (07:52)
[2019-11-07] MEDS: DOCUSATE SODIUM 100 MG CAP PO SCH ×2 (07:53→20:54)
--- NOTE | 2019-11-07 07:54 | Orthopedic Progress Note ---
Date of Service November 07, 2019 Assessment & Plan (1) Avascular necrosis of bone of right hip: s/p R NANDINI POD#1 -ancef x 24 -DVT ppx: SCDs, TEDs, 81mg ASA BID -WBAT RLE -PT/OT -Posterior hip precautions -Postop x-ray demonstrates a well aligned well fixed prosthesis without evidence of fracture, dislocation. -am labs - hgb 9.4, see above -DC planning - home with HH Admission and Anticipated Discharge Date Admission Date: November 06, 2019 Subjective Post Operative Progress Note Patient seen sitting up in bed, comfortable, denies complaints, pain well controlled, no acute issues. Denies F/C/N/V/SOB/CP Review of Systems Review of Systems: All systems reviewed & are unremarkable except as noted in HPI & below Constitutional: as per Subjective / HPI Physical Exam Physical Exam: RLE NVSI +EHL/FHL/TA/GS SILT grossly, +2 DP pulse, compartments soft NT, dressing cdi. Constitutional: WD/WN, vitals as above Results & Data ([facility]) Vital Signs (Past 12 Hours) Vital Signs Temp Pulse Resp BP Pulse Ox 11/07/19 07:16 37.1 C 90 16 117/74 94 11/07/19 03:28 36.7 C 89 16 107/63 92 11/06/19 23:38 37.0 C 90 14 112/66 91 Laboratory Results 11/07/19 11/07/19 11/07/19 Range/Units 08:00 06:41 06:41 WBC 12.11 H (4.8-10.8) K/uL RBC 3.22 L (4.2-5.4) M/uL Hgb 9.4 L (12.0-16.0) g/dL Hct 30.3 L (37-47) % MCV 94.1 (80-100) fL MCH 29.2 (25-34) pg MCHC 31.0 L (32-36) g/dL RDW Std Deviation 47.7 H (36.4-46.3) fL RDW Coeff of Josemanuel 13.8 (11.5-14.5) % Plt Count 449 H (130-400) K/uL MPV 9.9 (7.4-10.4) fL Immature Gran % (Auto) 0.2 % Neut % (Auto) 74.3 % Lymph % (Auto) 14.1 % [place] % (Auto) 11.1 % Eos % (Auto) 0.2 % Baso % (Auto) 0.1 % Immature Gran # (Auto) 0.03 H (0.00-0.02) K/uL Neut # (Auto) 8.99 H (1.4-6.5) K/uL Lymph # (Auto) 1.71 (1.2-3.4) K/uL [place] # (Auto) 1.35 H (0.11-0.59) K/uL Eos # (Auto) 0.02 (0-0.5) K/uL Baso # (Auto) 0.01 (0-0.2) K/uL Sodium 139 (136-145) mmol/L Potassium 4.5 (3.5-5.1) mmol/L Chloride 106 (98-107) mmol/L Carbon Dioxide 28 (21-32) mmol/L Anion Gap 5.0 (3-11) BUN 24 H (7-18) mg/dl Creatinine 0.91 (0.6-1.2) mg/dl Est Cr Clr Drug Dosing 58.2 ml/min Est GFR ( Amer) 77.8 Est GFR (Non-Af Amer) 67.1 BUN/Creatinine Ratio 25.9 H (10-20) Glucose 171 H (70-99) mg/dl POC Glucose 205 H (70-99) mg/dl Calcium 8.8 (8.5-10.1) mg/dl 11/07/19 11/06/19 11/06/19 Range/Units 01:49 20:15 17:14 WBC (4.8-10.8) K/uL RBC (4.2-5.4) M/uL Hgb (12.0-16.0) g/dL Hct (37-47) % MCV (80-100) fL MCH (25-34) pg MCHC (32-36) g/dL RDW Std Deviation (36.4-46.3) fL RDW Coeff of Josemanuel (11.5-14.5) % Plt Count (130-400) K/uL MPV (7.4-10.4) fL Immature Gran % (Auto) % Neut % (Auto) % Lymph % (Auto) % [place] % (Auto) % Eos % (Auto) % Baso % (Auto) % Immature Gran # (Auto) (0.00-0.02) K/uL Neut # (Auto) (1.4-6.5) K/uL Lymph # (Auto) (1.2-3.4) K/uL [place] # (Auto) (0.11-0.59) K/uL Eos # (Auto) (0-0.5) K/uL Baso # (Auto) (0-0.2) K/uL Sodium (136-145) mmol/L Potassium (3.5-5.1) mmol/L Chloride (98-107) mmol/L Carbon Dioxide (21-32) mmol/L Anion Gap (3-11) BUN (7-18) mg/dl Creatinine (0.6-1.2) mg/dl Est Cr Clr Drug Dosing ml/min Est GFR ( Amer) Est GFR (Non-Af Amer) BUN/Creatinine Ratio (10-20) Glucose (70-99) mg/dl POC Glucose 267 H 217 H 313 H* (70-99) mg/dl Calcium (8.5-10.1) mg/dl 11/06/19 11/06/19 11/06/19 Range/Units 17:11 17:07 14:28 WBC (4.8-10.8) K/uL RBC (4.2-5.4) M/uL Hgb (12.0-16.0) g/dL Hct (37-47) % MCV (80-100) fL MCH (25-34) pg MCHC (32-36) g/dL RDW Std Deviation (36.4-46.3) fL RDW Coeff of Josemanuel (11.5-14.5) % Plt Count (130-400) K/uL MPV (7.4-10.4) fL Immature Gran % (Auto) % Neut % (Auto) % Lymph % (Auto) % [place] % (Auto) % Eos % (Auto) % Baso % (Auto) % Immature Gran # (Auto) (0.00-0.02) K/uL Neut # (Auto) (1.4-6.5) K/uL Lymph # (Auto) (1.2-3.4) K/uL [place] # (Auto) (0.11-0.59) K/uL Eos # (Auto) (0-0.5) K/uL Baso # (Auto) (0-0.2) K/uL Sodium (136-145) mmol/L Potassium (3.5-5.1) mmol/L Chloride (98-107) mmol/L Carbon Dioxide (21-32) mmol/L Anion Gap (3-11) BUN (7-18) mg/dl Creatinine (0.6-1.2) mg/dl Est Cr Clr Drug Dosing ml/min Est GFR ( Amer) Est GFR (Non-Af Amer) BUN/Creatinine Ratio (10-20) Glucose (70-99) mg/dl POC Glucose 292 H 327 H* 316 H* (70-99) mg/dl Calcium (8.5-10.1) mg/dl 11/06/19 11/06/19 Range/Units 14:26 10:53 WBC (4.8-10.8) K/uL RBC (4.2-5.4) M/uL Hgb (12.0-16.0) g/dL Hct (37-47) % MCV (80-100) fL MCH (25-34) pg MCHC (32-36) g/dL RDW Std Deviation (36.4-46.3) fL RDW Coeff of Josemanuel (11.5-14.5) % Plt Count (130-400) K/uL MPV (7.4-10.4) fL Immature Gran % (Auto) % Neut % (Auto) % Lymph % (Auto) % [place] % (Auto) % Eos % (Auto) % Baso % (Auto) % Immature Gran # (Auto) (0.00-0.02) K/uL Neut # (Auto) (1.4-6.5) K/uL Lymph # (Auto) (1.2-3.4) K/uL [place] # (Auto) (0.11-0.59) K/uL Eos # (Auto) (0-0.5) K/uL Baso # (Auto) (0-0.2) K/uL Sodium (136-145) mmol/L Potassium (3.5-5.1) mmol/L Chloride (98-107) mmol/L Carbon Dioxide (21-32) mmol/L Anion Gap (3-11) BUN (7-18) mg/dl Creatinine (0.6-1.2) mg/dl Est Cr Clr Drug Dosing ml/min Est GFR ( Amer) Est GFR (Non-Af Amer) BUN/Creatinine Ratio (10-20) Glucose (70-99) mg/dl POC Glucose 307 H* 182 H (70-99) mg/dl Calcium (8.5-10.1) mg/dl
--- NOTE | 2019-11-07 08:10 | Anesthesiology Progress Note ---
Date of Service November 07, 2019 Anesthesia Post Procedure Vital Signs Vital Signs: Temp Pulse Pulse Resp BP Pulse Ox 11/07/19 07:16 37.1 C 90 16 117/74 94 11/07/19 03:28 36.7 C 89 16 107/63 92 11/06/19 23:38 37.0 C 90 14 112/66 91 11/06/19 15:00 36.4 C L 95 H 16 150/75 H 95 11/06/19 14:04 86 16 113/72 96 11/06/19 13:19 84 16 131/75 96 11/06/19 12:59 76 16 113/68 98 11/06/19 12:31 36.5 C 16 104/52 L 100 11/06/19 12:10 63 13 98/59 L 99 11/06/19 12:00 36.3 C L 64 13 102/56 L 97 11/06/19 11:50 64 13 95/54 L 95 11/06/19 11:40 66 15 99/63 L 97 11/06/19 11:30 69 14 101/61 97 11/06/19 11:20 71 14 108/59 L 97 11/06/19 11:10 68 13 109/60 100 11/06/19 11:00 69 14 98/67 L 98 11/06/19 10:52 36.1 C L 69 14 88/51 L 98 Pain Intensity Right Hip: Pain Intensity: 7 Notes Mental Status: alert / awake / arousable and participated in evaluation Patient Amnestic to Procedure: Yes Nausea / Vomiting: adequately controlled Pain: adequately controlled Airway Patency, RR, SpO2: stable & adequate BP & HR: stable & adequate Hydration State: stable & adequate Neuraxial Anesthesia: was administered and sensory block resolved Anesthetic Complications: no major complications apparent and Pt Satisfied with anesthetic care
[2019-11-07 08:15] LABS: Basophils # (auto) 0.01 K/uL (0-0.2); Basophils % (auto) 0.1 %; Eosinophils # (auto) 0.02 K/uL (0-0.5); Eosinophils % (auto) 0.2 %; Immature Granulocytes # (auto) 0.03 K/uL (0.00-0.02); Immature Granulocytes % (auto) 0.2 %; Lymphocytes # (auto) 1.71 K/uL (1.2-3.4); Lymphocytes % (auto) 14.1 %; Monocytes # (auto) 1.35 K/uL (0.11-0.59); Monocytes % (auto) 11.1 %; Neutrophils # (auto) 8.99 K/uL (1.4-6.5); Neutrophils % (auto) 74.3 %
[2019-11-07] MEDS ORDERED: NovoLIN-N (NPH) PER UNIT CHARGE SQ ONE (08:15)
[2019-11-07] MEDS: INSULIN ASPART 100 UNITS/ML 3 ML PEN SC SCH ×4 (08:48→20:56)
[2019-11-07] MEDS: clonazePAM 1 MG TAB PO SCH (08:53)
[2019-11-07] MEDS: DULOXETINE HCL 60 MG CAP PO SCH (10:16)
[2019-11-07] MEDS: CeleBREX 200 MG CAP PO SCH ×2 (11:36→20:53)
[2019-11-07] MEDS: DULOXETINE HCL 30 MG CAP PO SCH ×2 (11:36→17:27)
--- NOTE | 2019-11-07 15:31 | Pharmacy Report ---
Glycemic Control Progress Note - Date of Service November 07, 2019 - Scope Glycemic Pharmacist consulted for glycemic control to write orders per [facility] inpatient glycemic control protocol. - Objective Accuchecks BSG(last 24 hours):: 11/06/19 11/06/19 11/06/19 17:07 17:11 17:14 Glucose POC Glucose 327 H* 292 H 313 H* 11/06/19 11/07/19 11/07/19 20:15 01:49 06:41 Glucose 171 H POC Glucose 217 H 267 H 11/07/19 11/07/19 08:00 12:09 Glucose POC Glucose 205 H 87 HbA1c:: Hemoglobin A1c 6.0 % (4.5-5.6) H 10/12/19 11:13 - Recent Pertinent Medications The patient is currently receiving: * Basal insulin: NPH 25 units SQ x 1 * Correctional Insulin: Novolog Correction per scale ACHS Goal Range: Low 110 mg/dL - High 140 mg/dL Correction Factor: 25 mg/dL/unit * Prandial insulin: Per carb ratio of 1 unit per 8 grams CHO consumed - Outpatient Anti-Diabetic Meds metformin 1 gm PO BID - Assessment & Plan ASSESSMENT: * See progress note from 11/06/2019 for more background info, in short: * Pt receiving SQ basal bolus insulin regimen for hyperglycemia secondary to baseline DM (outpatient regimen on hold) and POD 1. As per yesterday's addendum, expected blood sugars to be higher due to uncovered carbohydrate consumption. Uncertain if any of the blood sugars are 2 hours after carbohydrates. * Patient is currently receiving an average of 61 units of insulin per day * 25 units of basal insulin * 36 units of prandial/correctional insulin * BSGs ranging 149 - 327 mg/dl over the past 24hrs * Changes needed to insulin regimen: * AM Fasting BSG = 205 mg/dl. This is above goal range for patient based on inpatient targets and co-morbidities. Gave additional 12 units of NPH. Will not give additional basal since effects from dexamethasone will dissipate quickly. Patient received an extra 6 units overnight. * Post-prandial BSGs were elevated so left weight-based stress of 3 Novolog for breakfast. With BSG of 87 mg/dL at lunch loosened to weight-based stress of 2. * Total daily dose = ? units. Will become clearer tomorrow. * Additional notes / comments: hold off on metformin since patient is having some difficulties with pain control PLAN FOR INPATIENT GLYCEMIC CONTROL: * NPH 12 units SQ x 1 * LOOSENING correction factor to 35 mg/dl/unit * LOOSENING carb ratio to 1 unit per 12 grams CHO consumed * Continuing goal range of Low 110 mg/dL - High 140 mg/dL RECOMMENDATIONS FOR DISCHARGE: * see note from 11/06/2019 Thank you.
[2019-11-07] MEDS: ATORVASTATIN 40 MG TAB PO SCH (17:26)
[2019-11-07] MEDS: TOPIRAMATE 50 MG TAB PO SCH (17:27)
[2019-11-07] MEDS: DOXEPIN HCL 50 MG CAPSULE PO SCH (17:27)
[2019-11-07] MEDS: FLUTICASONE FUROATE 100MCG 14 PUFFS/INHALER INH SCH (20:52)
[2019-11-07] MEDS: SENNA 8.6 MG TAB PO SCH (20:55)
[2019-11-08] MEDS: HYDROmorphone INJ 0.5 MG/0.5 ML SYR IV PRN ×2 (00:34→04:39)
[2019-11-08] MEDS: OXYCODONE HCL IR 5 MG TAB (IMMEDIATE RELEASE) PO PRN ×3 (02:47→11:46)
[2019-11-08] MEDS: ACETAMINOPHEN 500 MG TAB PO SCH ×2 (06:21→13:07)
[2019-11-08 06:44] LABS: Basophils # (auto) 0.02 K/uL (0-0.2); Basophils % (auto) 0.2 %; Eosinophils # (auto) 0.11 K/uL (0-0.5); Hemoglobin 8.9 g/dL (12.0-16.0); Immature Granulocytes # (auto) 0.04 K/uL (0.00-0.02); Immature Granulocytes % (auto) 0.4 %; Lymphocytes # (auto) 2.74 K/uL (1.2-3.4); Lymphocytes % (auto) 24.7 %; Mean Corpuscular Hgb Conc 30.7 g/dL (32-36); Mean Corpuscular Volume 94.5 fL (80-100); Mean Platelet Volume 9.9 fL (7.4-10.4); Monocytes # (auto) 1.14 K/uL (0.11-0.59); Monocytes % (auto) 10.3 %; Neutrophils # (auto) 7.05 K/uL (1.4-6.5); Neutrophils % (auto) 63.4 %; Platelet Count 403 K/uL (130-400); RDW Coefficient of Variation 14.2 % (11.5-14.5); RDW Standard Deviation 48.7 fL (36.4-46.3); Red Blood Count 3.07 M/uL (4.2-5.4)
[2019-11-08 07:15] LABS: BUN Creatinine Ratio 25.3 (10-20); Calcium 8.6 mg/dl (8.5-10.1); Creatinine Clr Calc Pharmacy 60.9 ml/min; Est GFR (African American) 82.2; Est GFR (Non-African American) 70.9; Potassium 4.2 mmol/L (3.5-5.1)
[2019-11-08] MEDS: DULOXETINE HCL 60 MG CAP PO SCH (07:22)
[2019-11-08] MEDS: GABAPENTIN 800 MG TAB PO SCH ×2 (07:22→13:07)
[2019-11-08] MEDS: MULTIVITAMIN TAB PO SCH (07:23)
[2019-11-08] MEDS: DOCUSATE SODIUM 100 MG CAP PO SCH (07:23)
[2019-11-08] MEDS: ASPIRIN 81 MG ECTAB PO SCH (07:23)
[2019-11-08] MEDS: CeleBREX 200 MG CAP PO SCH (07:23)
[2019-11-08] MEDS: NICOTINE 21 MG/24 HR TDSY TD SCH (07:24)
[2019-11-08] MEDS: UMECLIDINIUM BROMIDE 62.5MCG/BLISTER 7 PUFFS/INHALER INH SCH (07:25)
[2019-11-08] MEDS: FLUTICASONE/VILANTEROL 100/25MCG 14 PUFFS/INHALER INH SCH (07:25)
--- NOTE | 2019-11-08 08:43 | Orthopedic Progress Note ---
Date of Service November 08, 2019 Assessment & Plan (1) Avascular necrosis of bone of right hip: s/p R NANDINI POD#2 -ancef x 24 -DVT ppx: SCDs, TEDs, 81mg ASA BID -WBAT RLE -PT/OT -Posterior hip precautions -Postop x-ray demonstrates a well aligned well fixed prosthesis without evidence of fracture, dislocation. -am labs - hgb 8.9, see above -DC planning - home with POD#1 -ancef x 24 -DVT ppx: SCDs, TEDs, 81mg ASA BID -WBAT RLE -PT/OT -Posterior hip precautions -Postop x-ray demonstrates a well aligned well fixed prosthesis without evidence of fracture, dislocation. -am labs - hgb 9.4, see above -DC planning - home with Admission and Anticipated Discharge Date Admission Date: November 06, 2019 Subjective Post Operative Progress Note Patient seen sitting up in bed, comfortable, denies complaints, pain well controlled, no acute issues. Denies F/C/N/V/SOB/CP Review of Systems Review of Systems: All systems reviewed & are unremarkable except as noted in HPI & below Constitutional: as per Subjective / HPI Results & Data ([facility]) Vital Signs (Past 12 Hours) Vital Signs Temp Pulse Pulse Resp BP Pulse Ox 11/08/19 07:35 37.2 C 92 H 16 121/73 95 11/07/19 23:52 36.9 C 94 H 18 111/72 94 Laboratory Results 11/08/19 11/08/19 11/08/19 Range/Units 08:24 06:16 06:16 WBC 11.10 H (4.8-10.8) K/uL RBC 3.07 L (4.2-5.4) M/uL Hgb 8.9 L (12.0-16.0) g/dL Hct 29.0 L (37-47) % MCV 94.5 (80-100) fL MCH 29.0 (25-34) pg MCHC 30.7 L (32-36) g/dL RDW Std Deviation 48.7 H (36.4-46.3) fL RDW Coeff of Josemanuel 14.2 (11.5-14.5) % Plt Count 403 H (130-400) K/uL MPV 9.9 (7.4-10.4) fL Immature Gran % (Auto) 0.4 % Neut % (Auto) 63.4 % Lymph % (Auto) 24.7 % Love % (Auto) 10.3 % Eos % (Auto) 1.0 % Baso % (Auto) 0.2 % Immature Gran # (Auto) 0.04 H (0.00-0.02) K/uL Neut # (Auto) 7.05 H (1.4-6.5) K/uL Lymph # (Auto) 2.74 (1.2-3.4) K/uL Love # (Auto) 1.14 H (0.11-0.59) K/uL Eos # (Auto) 0.11 (0-0.5) K/uL Baso # (Auto) 0.02 (0-0.2) K/uL Sodium 139 (136-145) mmol/L Potassium 4.2 (3.5-5.1) mmol/L Chloride 108 H (98-107) mmol/L Carbon Dioxide 25 (21-32) mmol/L Anion Gap 6.0 (3-11) BUN 22 H (7-18) mg/dl Creatinine 0.87 (0.6-1.2) mg/dl Est Cr Clr Drug Dosing 60.9 ml/min Est GFR ( Amer) 82.2 Est GFR (Non-Af Amer) 70.9 BUN/Creatinine Ratio 25.3 H (10-20) Glucose 202 H (70-99) mg/dl POC Glucose 186 H (70-99) mg/dl Calcium 8.6 (8.5-10.1) mg/dl 11/07/19 11/07/19 11/07/19 Range/Units 20:49 17:20 12:09 WBC (4.8-10.8) K/uL RBC (4.2-5.4) M/uL Hgb (12.0-16.0) g/dL Hct (37-47) % MCV (80-100) fL MCH (25-34) pg MCHC (32-36) g/dL RDW Std Deviation (36.4-46.3) fL RDW Coeff of Josemanuel (11.5-14.5) % Plt Count (130-400) K/uL MPV (7.4-10.4) fL Immature Gran % (Auto) % Neut % (Auto) % Lymph % (Auto) % Love % (Auto) % Eos % (Auto) % Baso % (Auto) % Immature Gran # (Auto) (0.00-0.02) K/uL Neut # (Auto) (1.4-6.5) K/uL Lymph # (Auto) (1.2-3.4) K/uL Love # (Auto) (0.11-0.59) K/uL Eos # (Auto) (0-0.5) K/uL Baso # (Auto) (0-0.2) K/uL Sodium (136-145) mmol/L Potassium (3.5-5.1) mmol/L Chloride (98-107) mmol/L Carbon Dioxide (21-32) mmol/L Anion Gap (3-11) BUN (7-18) mg/dl Creatinine (0.6-1.2) mg/dl Est Cr Clr Drug Dosing ml/min Est GFR ( Amer) Est GFR (Non-Af Amer) BUN/Creatinine Ratio (10-20) Glucose (70-99) mg/dl POC Glucose 177 H 220 H 87 (70-99) mg/dl Calcium (8.5-10.1) mg/dl
[2019-11-08] MEDS ORDERED: LANTUS PER UNIT CHARGE SQ ONE (09:00)
[2019-11-08] MEDS: INSULIN ASPART 100 UNITS/ML 3 ML PEN SC SCH ×2 (09:03→13:04)
[2019-11-08] MEDS: clonazePAM 1 MG TAB PO SCH (09:04)
[2019-11-08] MEDS: DULOXETINE HCL 30 MG CAP PO SCH (11:47)
--- NOTE | 2019-11-08 22:45 | Discharge Summary ---
Date of Service November 08, 2019 Admission HPI Per Admitting Provider The patient is a 64 year old female who presents with complaints of severe right hip pain and DJD/AVN. The patient has failed outpatient conservative treatments to this point which included NSAIDs, bisphosphonates, PT, protected WB and a home walking, exercise program. The patient's pain and limited function have progressed to the point where they severely hinder their activities of daily living and they no longer tolerate exercise programs. They are requesting to proceed with total hip replacement surgery. Principal Diagnosis Right total hip replacement -right hip AVN Discharge Exam RLE NVSI +EHL/FHL/TA/GS SILT grossly, +2 DP pulse, compartments soft NT, dressing cdi. Constitutional WD/WN, vitals as above Discharge Data Allergies Allergy/AdvReac Type Severity Reaction Status Date / Time No Known Allergies Allergy Verified 11/06/19 07:35 Consultations 11/07/19 08:00 Consult Case Management - Discharge Planning Routine Procedures Performed Operation Date: 11/06/19 09:00 Actual Procedures p Right Posterior Total Hip Arthroplasty uncemented(Right) - Jl Brennan DO Hospital Course (1) Avascular necrosis of bone of right hip: The patient is a 64 -year-old female who presents with long standing history of severe right hip AVN and failed outpatient conservative treatments. The patient's symptoms have progressed to the point where it has been difficult to perform even normal activities of daily living. I indicated the patient for a right total hip arthroplasty, the risks, benefits and complications of the procedure include but not limited to infection, bleeding, damage to bone, nerves, vessels, surrounding soft tissue, may develop blood clots, loss of function, leg length discrepancy, dislocation, failure of the components, loosening of the components, the need for additional surgery and . The patient wished to proceed with surgery at this time and informed consent was obtained. Hospital Course: On 11/06/19 the patient was taken to the operating room, adequate anesthesia administered and underwent a right total hip arthroplasty. The patient tolerated the procedure well and was taken to the PACU in stable condition. Post-operatively the patient was started on a DVT ppx medication and given appropriate IV antibiotics. Consults were placed to physical therapy, occupational therapy and case management. On POD#1, the patient did well overnight and their pain was well controlled. Labs were drawn and the Hgb was 9.4. The patient progressed well with PT. On POD#2, the patient continued to progress with PT, pain well controlled, no acute issues. Labs were drawn, hgb 8.9. The patients hospital stay was relatively uneventful and they were deemed stable by the orthopedic team and consultants to be discharged home with on 11/08/19. Discharge Instructions: Upon discharge the patient may weight bear as tolerates through their operative extremity. They were instructed to keep the incision clean and dry at all times. The patient may shower but should not submerge the incision, avoid bathing, pools and hot tubes. The patient was given a script for pain medication and should take as instructed. The patient was given a script for DVT ppx 81mg ASA BID and should take as directed. The patient was instructed to not drive or travel for long distances until cleared to do so. If the patient develops any symptoms of fevers, chills, nausea, vomiting, increased redness, swelling, pain or drainage from the surgical site, they should notify the office and/or proceed to the nearest emergency room. The patient should follow up in 10-14 days after surgery for their routine post-operative follow-up appointment and should call the office to confirm the date and time. s/p R NANDINI POD#2 -ancef x 24 -DVT ppx: SCDs, TEDs, 81mg ASA BID -WBAT RLE -PT/OT -Posterior hip precautions -Postop x-ray demonstrates a well aligned well fixed prosthesis without evidence of fracture, dislocation. -am labs - hgb 8.9, see above -DC planning - home with POD#1 -ancef x 24 -DVT ppx: SCDs, TEDs, 81mg ASA BID -WBAT RLE -PT/OT -Posterior hip precautions -Postop x-ray demonstrates a well aligned well fixed prosthesis without evidence of fracture, dislocation. -am labs - hgb 9.4, see above -DC planning - home with Total Time Total Time Spent Total Time Spent (In Minutes): 45 minutes Discharge Plan Discharge Items Patient Disposition: Home - Home Health Services Reason For Visit: RIGHT HIP OSTEOARTHRITIS Discharge Diagnosis: Right total hip replacement -Right hip AVN Condition on Discharge: Good Activity: Per Instructions section Lifting: Wait until after follow-up appointment Bathing: Keep incision dry Bathing Comment: No bathing, pools or hot tubs Sexual Activity: Wait until after follow-up appointment Exercise/Sports: Wait until after follow-up appointment Driving/Machine Use: No driving Weightbearing: Full weightbearing Non-emergency contact: Primary Care Provider and Surgeon Call non-emergency contact if: you have any medication questions, your symptoms worsen, your pain is not controlled, your pain is worsening, your pain is unusual for you, your pain is concerning for you, you have a fever, your temperature is above 101, your wound has increased redness, your wound has increased drainage and your wound pain has increased Follow-up/Referrals: Gunjan Goyal MD [Primary Care Provider] - Diet: Carb Consistent or DM2 Addtl Attending Provider Instructions: ACTIVITY RECOMMENDATIONS: SELF CARE INSTRUCTIONS AFTER TOTAL HIP REPLACEMENT Until the incision and soft tissues around your hip have healed, there is a possibility that the hip prosthesis could dislocate. A. Observe the following precautions to prevent dislocation: 1. Don't bend your hip greater than 90 degrees. 2. Avoid crossing your legs or ankles while standing or lying. 3. Sit with your feet placed 6 inches apart. 4. When sitting, keep your knees below your hips. Sit on a firm surface, avoid deep, soft chairs and couches. Use an elevated toilet seat in the bathroom. 5. Don't bend over at the waist. Use a long handled shoehorn and a sock aid to help you put on your shoes and socks. A treating plant pumper can help you strip picker objects that are too high or too low to reach. 6. Keep car riding to a minimum for at least one month after surgery. B. Your balance may be shaky for a while. Use crutches or a walker until directed by your doctor. C. Use hand rails when walking on stairs. D. Wear low heeled shoes with non-slip soles. E. Be sure that your floors are free of things that could trip you - throw rugs, electrical cords, small objects. Avoid wet and waxed floors, especially with crutches and canes. F. Try to walk several times a day with rest periods between. G. Continue with all the exercises taught to you in the hospital. Again, make walking a part of your daily routine. SPECIAL CARE INSTRUCTIONS: VERY IMPORTANT TO READ AND REVIEW A. You may still be at risk for phlebitis and blood clots. 1. Wear surgical stockings (ALEXEY hose) for 2 weeks after surgery to improve circulation and reduce swelling. 2. Take Aspirin 81mg twice daily for 4 weeks or as directed by your doctor. This is your blood thinner. 3. High risk patients may be prescribed a stronger blood thinner if necessary. 4. If you are on Coumadin normally, your family doctor/flight engineer performance qualified should monitor your blood work. Expect a phone call the day of or the day after bloodwork is drawn to adjust your dosage. B. You must take antibiotics before having dental work, bladder, bowel and other surgery. Your doctor will provide you with a permanent card to carry describing precautions. C. Call [facility] if you have a fever, redness or swelling around the incision, cloudy drainage from incision, or sudden increase in pain in your hip, not relieved by your regular pain medication. D. Please call the office at if you have any concerns or questions about your operation or recovery. * YOU MAY SHOWER, NO TUB BATHS UNTIL CLEARED BY YOUR DOCTOR. * WEAR ALEXEY HOSE 20 HOURS PER DAY FOR 2 WEEKS. * YOU SHOULD USE A WALKER OR CRUTCHES FOR 2-4 WEEKS. THIS WILL HELP PREVENT STRAIN ON YOUR HIP MUSCLE AND ALLOW IT TO HEAL PROPERLY. YOU MAY WEAN TO A CANE TOLERATED. * MOST PATIENTS WILL HAVE HOME NURSING FOR THERAPY. IF YOU DECIDE TO DO OUTPATIENT PHYSICAL THERAPY, PLEASE SCHEDULE THIS 3 TIMES PER WEEK. *PREVENA incisional vac is a special dressing covering your incision. This dressing provides a sterile dry environment while you are healing. The dressing is to be left in place for 7 days post-operatively. Your home nurse or surgeon will remove. If you develop any redness or blisters or have any questions notify your surgeon immediately. FOLLOW UP VISIT: If appointment is not already scheduled: Please call [facility] to make a follow-up appointment for 2 weeks after your surgery at . Pending Studies at Discharge: No Stand-Alone Forms: [employer], Opioid Pain Management, Smoking Cessation Medications and DC Order Prescriptions: New aspirin 81 mg Tablet,Delayed Release (Dr/Ec) 81 mg PO BID Qty: 56 RF: 0 acetaminophen 500 mg Tablet 1,000 mg PO Q8 PRN (Reason: pain/fever) Qty: 90 RF: 0 celecoxib [Celebrex] 200 mg Capsule 200 mg PO BID PRN (Reason: pain/inflammation) Qty: 28 RF: 0 oxycodone 5 mg Tablet 5 mg PO Q6H MDD 6 tabs PRN (Reason: pain) Qty: 30 RF: 0 sennosides [Senokot] 8.6 mg Tablet 17.2 mg PO HS PRN (Reason: constipation) Qty: 28 RF: 0 Continued doxepin 50 mg Capsule 50 mg PO HS RF: 0 clonazepam [Klonopin] 1 mg Tablet 1 mg PO QAM RF: 0 topiramate [Topamax] 25 mg Tablet 50 mg PO HS RF: 0 gabapentin 800 mg Tablet 800 mg PO TID RF: 0 gabapentin 300 mg Capsule 300 mg PO TID PRN (Reason: PRN) RF: 0 albuterol sulfate [ProAir HFA] 90 mcg/actuation Hfa Aerosol Inhaler 2 puff INHALATION QID PRN (Reason: Wheezing) RF: 0 Pulmicort Flexhaler 90 mcg/actuation Aerosol Powdr Breath Activated 2 inh INHALATION HS RF: 0 Incruse Ellipta 62.5 mcg/actuation Blister With Device 1 inh INHALATION QAM RF: 0 duloxetine [Cymbalta] 30 mg Capsule,Delayed Release(Dr/Ec) 30 mg PO BID RF: 0 atorvastatin 40 mg Tablet 40 mg PO PM RF: 0 alendronate 10 mg Tablet 10 mg PO QAM RF: 0 metformin 1,000 mg Tablet 1,000 mg PO BIDM RF: 0 duloxetine 60 mg Capsule,Delayed Release(Dr/Ec) 60 mg PO QAM RF: 0 budesonide-formoterol [Symbicort] 160-4.5 mcg/actuation Hfa Aerosol Inhaler 2 puff INHALATION BID RF: 0 Centrum Silver Women 8 mg iron-400 mcg-300 mcg Tablet 1 tab PO QAM RF: 0 Discontinued acetaminophen [Pain Reliever] 500 mg Tablet 1,000 mg PO Q8 PRN (Reason: pain) Qty: 90 RF: 0 celecoxib [Celebrex] 200 mg Capsule 200 mg PO BID PRN (Reason: pain) Qty: 28 RF: 0 ibuprofen 800 mg Tablet 800 mg PO TID PRN (Reason: Pain) RF: 0 aspirin 81 mg Tablet,Delayed Release (Dr/Ec) 81 mg PO QAM RF: 0 Discharge Orders: Discharge Order (Routine); Ordered 11/08/19 Ordered By: Deshaun Caraballo/Other Patient Handouts: Surgery Prevent DVT After Admission Data Admit Date/Time: 11/06/19 10:57 Attending Provider: Jl Brennan Admit Provider: Jl Brennan Primary Care Provider: Gunjan Goyal Other Interventions: Discharge Summary Assessment (RN) Last Done: 11/08/19 10:01 DC Date/Time DO NOT enter until pt leaves facility: 11/08/19 15:40
== END 2019-11-08 15:40 | disposition home health service (06) | DRG 470 ==
LOC: ASU 07:09 → 3E 10:57